=== PATIENT | female | born 1955 | race Caucasian/White ===

== ENCOUNTER → 2023-02-06 | Outpatient (REF) | payer MEDICAID, SELFPAY ==
[2023-02-06 08:36] LABS: Hematocrit 37.8 % (37-47); Hemoglobin 12.2 g/dL (12.0-15.0); Mean Corp Hgb Conc 32.3 g/dL (32-36); Mean Platelet Vol. 9.4 fl (6.2-12.0); Platelet Count 240 K/mm3 (150-450); RBC Distribution Width CV 14.2 % (11.6-14.6); RBC Distribution Width SD 46.5 fl (35.1-43.9); White Blood Count 6.7 K/mm3 (4.4-11.0)
[2023-02-06 09:06] LABS: ALB/GLOB Ratio 0.9 RATIO (0.9-2.4); AST(SGOT) 11 U/L (15-37); Alanine Aminotransfer ALT/SGPT 16 U/L (13-56); Albumin, Serum 3.3 g/dL (3.2-5.0); Alkaline Phosphatase 92 U/L (45-117); Anion Gap 5 (5-15); BUN 18 mg/dL (7-18); BUN/Creat Ratio 24.4 RATIO (10-20); Chloride 107 mmol/L (98-107); Cholesterol 140 mg/dL (200); Creatinine, Serum 0.74 mg/dL (0.55-1.02); EST Glomerular Filtration Rate 83 mL/min (>60); Est Glom Filt Rate - Afr Amer 100 mL/min (>60); Globulin 3.6 g/dL (2.2-4.2); Glucose 171 mg/dL (74-106); High Density Lipoprotein 40 mg/dL; Potassium 3.5 mmol/L (3.5-5.1); Protein, Total 6.9 g/dL (6.4-8.2); Sodium Level 138 mmol/L (136-145); Thyroid Stim Hormone (TSH) 4.26 uIU/mL (0.358-3.74); Triglycerides 162 mg/dL; Very Low Density Lipoprotein 32 mg/dL (5-40)
[2023-02-06 09:10] LABS: Hemoglobin A1c 6.9 % (3.8-5.6)
[2023-02-06 09:16] LABS: Vitamin B12 311 pg/mL (211-911)
== END | disposition home or self-care (01) ==
LOC: OLS.SW 06:00
PROVIDERS: Visit Provider Internal Medicine
DX: E11.22 Type 2 diabetes mellitus with diabetic chronic kidney disease (principal); N18.9 Chronic kidney disease, unspecified
CPT/HCPCS: 36415; 80053; 80061; 82607; 83036; 84443; 85027

== ENCOUNTER → 2023-04-23 | Outpatient (REF) | payer MEDICAID, SELFPAY ==
[2023-04-24 08:13] LABS: Mucous, Urine 0 SEEN /hpf (<or=2+); Red Blood Cells-Urine 0 SEEN /hpf (0-5)
[2023-04-24 08:58] LABS: Color, Urine Yellow (Yellow); Glucose, Dipstick Normal (Normal); Ketone-Dipstick Negative (Negative); Leukocyte Esterase-Dipstick 25 /ul (Negative); Nitrite-Dipstick Positive (Negative); Occult Blood-Urine Negative /ul (Negative); Protein-Dipstick Negative (Negative); Urine Bilirubin Dipstick Negative (Negative); Urine Clarity Cloudy (Clear); Urine Urobilinogen 1 mg/dl (Normal)
[2023-04-24 09:04] LABS: Bacteria 2+ /hpf (None Seen); Squamous Epithelial Cells - UA 0-5 SEEN /hpf (5-10); White Blood Cells 0-5 SEEN /hpf (0-5)
== END | disposition home or self-care (01) ==
LOC: OLS.SW 15:30
PROVIDERS: Visit Provider Internal Medicine
DX: R41.0 Disorientation, unspecified (principal); R45.1 Restlessness and agitation
CPT/HCPCS: 81001; 87077; 87086; 87088; 87186

== ENCOUNTER → 2023-04-23 | Outpatient (REF) | payer MEDICARE, MEDICAID, SELFPAY ==
[2023-04-23 08:12] LABS: Absolute Lymphocyte Count 1.84 X10^3/uL (0.83-4.51); Basophil# 0.05 X10^3/uL; Basophil% 0.8 % (0-1); Eosinophil# 0.19 X10^3/uL; Eosinophils% 2.9 % (0-5); Hemoglobin 12.9 g/dL (12.0-15.0); Lymphocyte # 1.84 X10^3/ul (0.83-4.51); Lymphocyte % 27.8 % (19-41); Mean Corp Hgb Conc 32.3 g/dL (32-36); Mean Corpuscular Hgb 28.9 pg (27.0-32.0); Mean Corpuscular Volume 89.7 fL (81-99); Mean Platelet Vol. 9.2 fl (6.2-12.0); Monocyte% 7.6 % (0-10); NRBC Flagged by Analyzer 0 % (0-5); Neutrophil # 4.01 X10^3/uL (2.7-7.7); Neutrophil % 60.6 % (47-70); Platelet Count 272 K/mm3 (150-450); RBC Distribution Width CV 13.3 % (11.6-14.6); RBC Distribution Width SD 43.5 fl (35.1-43.9); Red Blood Count 4.46 M/mm3 (4.2-5.4); White Blood Count 6.6 K/mm3 (4.4-11.0)
[2023-04-23 08:18] LABS: Anion Gap 6 (5-15); BUN 23 mg/dL (7-18); Calcium,Total 9.2 mg/dL (8.5-10.1); Chloride 106 mmol/L (98-107); Creatinine, Serum 0.66 mg/dL (0.55-1.02); EST Glomerular Filtration Rate 95 mL/min (>60); Est Glom Filt Rate - Afr Amer 115 mL/min (>60); Glucose 151 mg/dL (74-106); Potassium 3.6 mmol/L (3.5-5.1); Sodium Level 140 mmol/L (136-145)
== END | disposition home or self-care (01) ==
LOC: OLS.SW 05:00
PROVIDERS: Visit Provider Internal Medicine
DX: R45.1 Restlessness and agitation (principal); R41.0 Disorientation, unspecified
CPT/HCPCS: 36415; 80048; 85025

== ENCOUNTER → 2023-05-23 | Outpatient (REF) | payer MEDICARE, MEDICAID, SELFPAY ==
[2023-05-23 21:25] LABS: Bacteria 0 SEEN /hpf (None Seen); Mucous, Urine 0 SEEN /hpf (<or=2+); Red Blood Cells-Urine 0 SEEN /hpf (0-5)
[2023-05-23 21:27] LABS: Absolute Lymphocyte Count 1.68 X10^3/uL (0.83-4.51); Absolute Neutrophil Count 4.8 X10^3/uL (2.0-7.7); Basophil# 0.05 X10^3/uL; Basophil% 0.7 % (0-1); Eosinophil# 0.17 X10^3/uL; Eosinophils% 2.3 % (0-5); Hematocrit 40.4 % (37-47); Hemoglobin 13.9 g/dL (12.0-15.0); Lymphocyte # 1.68 X10^3/ul (0.83-4.51); Mean Corp Hgb Conc 34.4 g/dL (32-36); Mean Corpuscular Hgb 30.2 pg (27.0-32.0); Mean Corpuscular Volume 87.8 fL (81-99); Mean Platelet Vol. 9.2 fl (6.2-12.0); Monocyte# 0.61 X10^3/uL; Monocyte% 8.3 % (0-10); NRBC Flagged by Analyzer 0 % (0-5); Neutrophil # 4.78 X10^3/uL (2.7-7.7); Neutrophil % 65.3 % (47-70); Platelet Count 268 K/mm3 (150-450); RBC Distribution Width CV 13.7 % (11.6-14.6); RBC Distribution Width SD 43.8 fl (35.1-43.9); White Blood Count 7.3 K/mm3 (4.4-11.0)
[2023-05-23 21:49] LABS: Color, Urine Yellow (Yellow); Glucose, Dipstick Normal (Normal); Ketone-Dipstick 5 mg/dl (Negative); Leukocyte Esterase-Dipstick 500 /ul (Negative); Nitrite-Dipstick Negative (Negative); Occult Blood-Urine 250 /ul (Negative); Protein-Dipstick 100 mg/dl (Negative); Urine Clarity Cloudy (Clear); Urine Urobilinogen 1 mg/dl (Normal)
[2023-05-23 21:51] LABS: Anion Gap 10 (5-15); BUN 24 mg/dL (7-18); BUN/Creat Ratio 23.8 RATIO (10-20); Calcium,Total 9.4 mg/dL (8.5-10.1); Chloride 105 mmol/L (98-107); Creatinine, Serum 1.01 mg/dL (0.55-1.02); EST Glomerular Filtration Rate 58 mL/min (>60); Est Glom Filt Rate - Afr Amer 70 mL/min (>60); Glucose 205 mg/dL (74-106); Potassium 3.9 mmol/L (3.5-5.1); Sodium Level 140 mmol/L (136-145)
[2023-05-23 22:16] LABS: Urine Bilirubin Dipstick 1 mg/dL (Negative)
[2023-05-23 22:24] LABS: Squamous Epithelial Cells - UA 0-5 SEEN /hpf (5-10); White Blood Cells >100 SEEN /hpf (0-5)
== END | disposition home or self-care (01) ==
LOC: OLS.SW 20:22
PROVIDERS: Visit Provider Internal Medicine
DX: F41.9 Anxiety disorder, unspecified (principal); R45.1 Restlessness and agitation; R41.0 Disorientation, unspecified
CPT/HCPCS: 80048; 81001; 85025; 87077; 87086; 87088; 87186

== ENCOUNTER → 2023-08-06 | Outpatient (REF) | payer MEDICARE, MEDICAID, SELFPAY ==
[2023-08-06 10:00] LABS: Hemoglobin A1c 6.7 % (3.8-5.6)
== END ==
LOC: OLS.SW 04:00
PROVIDERS: Visit Provider Internal Medicine
DX: E11.9 Type 2 diabetes mellitus without complications (principal)
CPT/HCPCS: 36415; 83036

== ENCOUNTER → 2023-09-10 | Outpatient (REF) | payer MEDICARE, MEDICAID, SELFPAY ==
[2023-09-10 08:22] LABS: Hematocrit 40.9 % (37-47); Hemoglobin 13.5 g/dL (12.0-15.0); Mean Corpuscular Hgb 29.3 pg (27.0-32.0); Mean Corpuscular Volume 88.9 fL (81-99); Mean Platelet Vol. 9.4 fl (6.2-12.0); Platelet Count 284 K/mm3 (150-450); White Blood Count 7.3 K/mm3 (4.4-11.0)
[2023-09-10 08:39] LABS: Anion Gap 6 (5-15); BUN 17 mg/dL (7-18); Calcium,Total 9.3 mg/dL (8.5-10.1); Chloride 106 mmol/L (98-107); Creatinine, Serum 0.74 mg/dL (0.55-1.02); EST Glomerular Filtration Rate 83 mL/min (>60); Est Glom Filt Rate - Afr Amer 100 mL/min (>60); Glucose 125 mg/dL (74-106); Potassium 3.6 mmol/L (3.5-5.1); Sodium Level 139 mmol/L (136-145)
== END ==
LOC: OLS.SW 04:00
PROVIDERS: Referring Provider Internal Medicine; Visit Provider Internal Medicine
DX: E78.5 Hyperlipidemia, unspecified (principal); I25.10 Atherosclerotic heart disease of native coronary artery without angina pectoris
CPT/HCPCS: 36415; 80048; 85027

== ENCOUNTER → 2023-11-26 | Outpatient (REF) | payer MEDICARE, MEDICAID, SELFPAY ==
[2023-11-26 08:37] LABS: Absolute Lymphocyte Count 1.95 X10^3/uL (0.83-4.51); Basophil# 0.06 X10^3/uL; Basophil% 0.5 % (0-1); Eosinophil# 1.91 X10^3/uL; Eosinophils% 16.1 % (0-5); Hematocrit 37.6 % (37-47); Hemoglobin 12.3 g/dL (12.0-15.0); Lymphocyte # 1.95 X10^3/ul (0.83-4.51); Lymphocyte % 16.4 % (19-41); Mean Corp Hgb Conc 32.7 g/dL (32-36); Mean Corpuscular Hgb 29.4 pg (27.0-32.0); Mean Platelet Vol. 9.6 fl (6.2-12.0); Monocyte# 0.92 X10^3/uL; Monocyte% 7.8 % (0-10); NRBC Flagged by Analyzer 0 % (0-5); Neutrophil # 6.97 X10^3/uL (2.7-7.7); Neutrophil % 58.7 % (47-70); Platelet Count 268 K/mm3 (150-450); RBC Distribution Width CV 13.6 % (11.6-14.6); RBC Distribution Width SD 44.7 fl (35.1-43.9); Red Blood Count 4.18 M/mm3 (4.2-5.4); White Blood Count 11.9 K/mm3 (4.4-11.0)
[2023-11-26 11:07] LABS: Anion Gap 9 (5-15); BUN 26 mg/dL (7-18); Calcium,Total 9.3 mg/dL (8.5-10.1); Chloride 107 mmol/L (98-107); Creatinine, Serum 0.87 mg/dL (0.55-1.02); EST Glomerular Filtration Rate 69 mL/min (>60); Est Glom Filt Rate - Afr Amer 83 mL/min (>60); Glucose 145 mg/dL (74-106); Potassium 3.4 mmol/L (3.5-5.1); Sodium Level 140 mmol/L (136-145)
== END ==
LOC: OLS.SW 05:00
PROVIDERS: Visit Provider Internal Medicine
DX: E78.5 Hyperlipidemia, unspecified (principal); R79.9 Abnormal finding of blood chemistry, unspecified
CPT/HCPCS: 36415; 80048; 85025

== ENCOUNTER → 2023-11-28 | Outpatient (REF) | payer MEDICARE, MEDICAID, SELFPAY ==
[2023-11-28 10:16] LABS: Mucous, Urine 0 SEEN /hpf (<or=2+); Red Blood Cells-Urine 0 SEEN /hpf (0-5); Squamous Epithelial Cells - UA 0 SEEN /hpf (5-10)
[2023-11-28 10:20] LABS: Color, Urine Yellow (Yellow); Glucose, Dipstick Normal (Normal); Ketone-Dipstick 5 mg/dl (Negative); Leukocyte Esterase-Dipstick 500 /ul (Negative); Nitrite-Dipstick Negative (Negative); Occult Blood-Urine 10 /ul (Negative); Protein-Dipstick 30 mg/dl (Negative); Specific Gravity, Urine 1.015 (1.002-1.030); Urine Clarity Cloudy (Clear); Urine Urobilinogen 1 mg/dl (Normal)
[2023-11-28 10:26] LABS: Urine Bilirubin Dipstick 1 mg/dL (Negative)
[2023-11-28 11:11] LABS: Amorphous Sediment 3+; Bacteria 1+ /hpf (None Seen); White Blood Cells >100 SEEN /hpf (0-5)
== END ==
LOC: OLS.SW 05:00
PROVIDERS: Visit Provider Internal Medicine
DX: D72.829 Elevated white blood cell count, unspecified (principal); Z79.899 Other long term (current) drug therapy
CPT/HCPCS: 81001; 87077; 87086; 87088; 87186

== ENCOUNTER → 2023-12-05 | Outpatient (REF) | payer MEDICARE, MEDICAID, SELFPAY ==
[2023-12-05 07:39] LABS: Absolute Lymphocyte Count 1.52 X10^3/uL (0.83-4.51); Basophil# 0.05 X10^3/uL; Basophil% 0.8 % (0-1); Eosinophil# 0.42 X10^3/uL; Eosinophils% 6.5 % (0-5); Hematocrit 38.3 % (37-47); Hemoglobin 12.3 g/dL (12.0-15.0); Lymphocyte # 1.52 X10^3/ul (0.83-4.51); Lymphocyte % 23.6 % (19-41); Mean Corp Hgb Conc 32.1 g/dL (32-36); Mean Corpuscular Hgb 29.1 pg (27.0-32.0); Mean Corpuscular Volume 90.8 fL (81-99); Mean Platelet Vol. 9.4 fl (6.2-12.0); Monocyte# 0.49 X10^3/uL; Monocyte% 7.6 % (0-10); NRBC Flagged by Analyzer 0 % (0-5); Neutrophil # 3.96 X10^3/uL (2.7-7.7); Neutrophil % 61.3 % (47-70); Platelet Count 265 K/mm3 (150-450); RBC Distribution Width CV 13.6 % (11.6-14.6); RBC Distribution Width SD 44.6 fl (35.1-43.9); Red Blood Count 4.22 M/mm3 (4.2-5.4); White Blood Count 6.5 K/mm3 (4.4-11.0)
== END ==
LOC: OLS.SW 05:00
PROVIDERS: Visit Provider Internal Medicine
DX: E11.22 Type 2 diabetes mellitus with diabetic chronic kidney disease (principal); E78.5 Hyperlipidemia, unspecified; I12.9 Hypertensive chronic kidney disease with stage 1 through stage 4 chronic kidney disease, or unspecified chronic kidney disease; N18.31 Chronic kidney disease, stage 3a
CPT/HCPCS: 36415; 85025

== ENCOUNTER → 2024-02-27 | Outpatient (REF) | payer MEDICARE, MEDICAID, SELFPAY ==
[2024-02-27 09:02] LABS: Absolute Lymphocyte Count 1.66 X10^3/uL (0.83-4.51); Absolute Neutrophil Count 4.5 X10^3/uL (2.0-7.7); Basophil# 0.04 X10^3/uL; Basophil% 0.6 % (0-1); Eosinophil# 0.25 X10^3/uL; Eosinophils% 3.5 % (0-5); Hematocrit 39.2 % (37-47); Lymphocyte # 1.66 X10^3/ul (0.83-4.51); Lymphocyte % 23.5 % (19-41); Mean Corp Hgb Conc 33.2 g/dL (32-36); Mean Corpuscular Hgb 29.9 pg (27.0-32.0); Mean Corpuscular Volume 90.1 fL (81-99); Mean Platelet Vol. 9.5 fl (6.2-12.0); Monocyte# 0.58 X10^3/uL; Monocyte% 8.2 % (0-10); NRBC Flagged by Analyzer 0 % (0-5); Neutrophil % 63.8 % (47-70); Platelet Count 283 K/mm3 (150-450); RBC Distribution Width CV 13.1 % (11.6-14.6); Red Blood Count 4.35 M/mm3 (4.2-5.4); White Blood Count 7.1 K/mm3 (4.4-11.0)
[2024-02-27 09:19] LABS: Anion Gap 5 (5-15); BUN 27 mg/dL (7-18); BUN/Creat Ratio 33.5 RATIO (10-20); Calcium,Total 9.8 mg/dL (8.5-10.1); Chloride 107 mmol/L (98-107); Cholesterol 173 mg/dL (200); Creatinine, Serum 0.81 mg/dL (0.55-1.02); EST Glomerular Filtration Rate 75 mL/min (>60); Est Glom Filt Rate - Afr Amer 91 mL/min (>60); Glucose 149 mg/dL (74-106); High Density Lipoprotein 39 mg/dL; Potassium 4.1 mmol/L (3.5-5.1); Sodium Level 141 mmol/L (136-145); Triglycerides 200 mg/dL; Very Low Density Lipoprotein 40 mg/dL (5-40)
[2024-02-27 09:48] LABS: Hemoglobin A1c 7.3 % (3.8-5.6)
== END ==
LOC: OLS.SW 05:00
PROVIDERS: Visit Provider Internal Medicine
DX: I25.10 Atherosclerotic heart disease of native coronary artery without angina pectoris (principal); E11.22 Type 2 diabetes mellitus with diabetic chronic kidney disease; N18.9 Chronic kidney disease, unspecified
CPT/HCPCS: 36415; 80048; 80061; 83036; 85025

== ENCOUNTER 2024-03-24 20:53 | Emergency (ER) | payer MEDICARE, MEDICAID, SELFPAY ==
[2024-03-24 20:54] VITALS: BP 138/71; PULSE 60; RESP 17; TEMP 36.3; O2SAT 96; BMI 28.9
[2024-03-24 21:06] VITALS: BP 137/71; PULSE 60; RESP 16; TEMP 36.3; O2SAT 97
--- NOTE | 2024-03-24 21:12 | CT_ITS ---
EXAM: CT HEAD WITHOUT INTRAVENOUS CONTRAST CLINICAL INDICATION: Change in Mental Status TECHNIQUE: Multiple axial images were obtained of the head without intravenous contrast. CTDIvol = ( 44.99 ) mGy, DLP = ( 829.85 ) mGycm This CT exam was performed using one or more of the following dose reduction techniques: automated exposure control, adjustment of the mA and/or kV according to patient size, and/or use of iterative reconstruction technique. COMPARISON: No relevant prior studies available. FINDINGS: BRAIN AND EXTRA-AXIAL SPACES: Periventricular small vessel ischemic change. No midline shift or hydrocephalus. Diffuse parenchymal atrophy. Small old lacunar infarct at the junction of the posterior aspect of the left basal ganglia and the left thalamus. Old focal infarct involving the subcortical white matter of the right frontal region anterolaterally. Diffuse cerebellar atrophy. Basal cisterns are patent. No acute intracranial hemorrhage, mass effect or edema. No evidence of acute cortical stroke. BONES/JOINTS: Unremarkable. No discrete lytic or blastic abnormalities. VASCULATURE: Atherosclerotic calcifications of the carotid siphons and vertebrobasilar arteries. SINUSES: Unremarkable as visualized. Clear. MASTOID AIR CELLS: Visualized sinuses and mastoid air cells are clear. ORBITS: Visualized globes, extraocular muscles, optic nerves and retrobulbar fat appear unremarkable. CT/Brain/Head without Contrast IMPRESSION: 1. No evidence of acute intracranial pathology. 2. Diffuse involutional changes and chronic ischemic small vessel white matter disease. Electronically Signed: Ricci Wilson MD at 0:07 EDT ,
--- NOTE | 2024-03-24 21:26 | EX.ED.VIS.PS ---
HPI HPI - Psych History of Present Illness Chief Complaint: Mental Health Informant: patient, EMS and SNF Narrative Narrative: Patient sent in from [facility] secondary to altered mental status. She has a history of dementia and reportedly has been yelling and violent with nurses as well as EMS today. EMS did give her 5 mg of IM Haldol during transport. Patient does not know where she is or why she is here. On review of records patient does appear to have history of dementia along with prior CVA and right hemiplegia. She has a history of chronic kidney disease with prior NC as well. [facility] Medical History (Updated 03/25/24 @ 00:[address] Kay Nichole MD) Anxiety and depression Breast cancer Chronic kidney disease CVA (cerebral vascular accident) Dementia Diabetes Hemiparesis High cholesterol Myocardial infarction Allergy/AdvReac Type Severity Reaction Status Date / Time FELICITY Inhibitors Allergy Unknown PT UNABLE Verified 03/24/24 21:51 TO RESPOND-NEEDS F/U eggplant Allergy Unknown PT UNABLE Verified 03/24/24 21:51 TO RESPOND-NEEDS F/U Penicillins Allergy Unknown PT UNABLE Verified 03/24/24 21:51 TO RESPOND-NEEDS F/U Surgical History History of mastectomy Social History Smoking Status: Never smoker ROS ROS ED Review of Systems ROS Unobtainable: due to mental status EXAM Physical Exam Const Vital Signs: 03/24/24 20:54 03/24/24 21:06 03/24/24 22:00 Temperature 97.3 F L 97.4 F L Temperature Source Temporal Temporal Pulse Rate 60 60 84 Respiratory Rate 17 16 16 Blood Pressure 138/71 H 137/71 H 132/82 H Blood Pressure Mean 93 93 98 Pulse Ox 96 97 99 Oxygen Delivery Method Room Air Room Air Room Air 03/24/24 23:00 03/25/24 00:00 Temperature Temperature Source Pulse Rate 76 69 Respiratory Rate 16 16 Blood Pressure 128/74 H 131/74 H Blood Pressure Mean 92 93 Pulse Ox 95 98 Oxygen Delivery Method Room Air Room Air Positive well nourished and well developed General Appearance ED: well developed HEENT Reports moist mucous membranes Eyes EOMs intact bilaterally Resp normal respiratory effort and clear to auscultation bilaterally Cardio Rate: regular rate Rhythm: regular rhythm GI non-tender Palpation: soft Extremity normal to inspection Neuro Neuro Narrative: Patient alert and looking around the room. She does not know where she is or why she is here. She has chronic right hemiparesis. Psych Psych Narrative: Patient with stuttered speech and hesitant to speak. Looks about the room. MDM MDM MDM Narrative Medical decision making narrative: IV line established. Labwork obtained to evaluate for leukocytosis, anemia, and electrolyte derangement. Urinalysis obtained to evaluate for infection/hematuria. CT scan of the head obtained given her altered mental status with baseline dementia. Lab Data Attestation: I reviewed the patient's lab results. Labs: Laboratory Results - last 24 hr 03/24/24 03/24/24 22:13 22:29 WBC 6.8 RBC 4.70 Hgb 13.5 Hct 42.2 MCV 89.8 MCH 28.7 MCHC 32.0 RDW Std Deviation 43.0 RDW Coeff of Jose 13.2 Plt Count 264 MPV 8.9 Immature Gran % (Auto) 0.300 Neut % (Auto) 63.5 Lymph % (Auto) 23.9 [place] % (Auto) 8.8 Eos % (Auto) 2.8 Baso % (Auto) 0.7 Absolute Neuts (auto) 4.3 Absolute Lymphs (auto) 1.62 Nucleated RBC % 0 Sodium 138 Potassium 4.0 Chloride 107 Carbon Dioxide 21.0 Anion Gap 10 BUN 26 H Creatinine 0.90 Estim Creat Clear Calc 61.24 Est GFR (MDRD) Af Amer 80 Est GFR (MDRD) Non-Af 66 BUN/Creatinine Ratio 29.0 H Glucose 127 H Calcium 9.6 Total Bilirubin 0.40 AST 18 ALT 19 Alkaline Phosphatase 69 Total Protein 7.4 Albumin 3.6 Globulin 3.8 Albumin/Globulin Ratio 0.9 Urine Color Yellow Urine Clarity Sl. Cloudy Urine pH 6.0 Ur Specific [place] 1.020 Urine Protein 15 H Urine Glucose (UA) Normal Urine Ketones Negative Urine Occult Blood 50 H Urine Nitrite Positive H Urine Bilirubin 1 H Urine Urobilinogen 1 H Ur Leukocyte Esterase 100 H Urine RBC 0-5 SEEN Urine WBC 5-10 SEEN Ur Squamous Epith Cells 0 SEEN Urine Bacteria 3+ Urine Mucus RARE Urine Opiates Screen NEGATIVE Urine Methadone Screen NEGATIVE Ur Barbiturates Screen NEGATIVE Ur Phencyclidine Scrn NEGATIVE Ur Amphetamines Screen NEGATIVE MDMA (Ecstasy) Screen NEGATIVE U Benzodiazepines Scrn NEGATIVE Urine Cocaine Screen NEGATIVE U Cannabinoids Screen NEGATIVE Ur Drug Screen Comment Ethyl Alcohol 4.0 Radiography Diagnostic Testing: Clinical Impression(s) from Imaging Studies Brain CT 03/24/24 21:12 IMPRESSION: 1. No evidence of acute intracranial pathology. 2. Diffuse involutional changes and chronic ischemic small vessel white matter disease. Electronically Signed: Ricci Wilson MD at 0:07 EDT , Treatment and Re-Evaluation Narrative: CBC was normal white count 6.8 with a hemoglobin of 13.5. Differential unremarkable. Chemistry studies are unremarkable with normal renal function. Glucose is 127. LFTs are normal. Urinalysis reveals positive nitrites with 3+ bacteria and 5-10 white cells. Urine tox screen is negative. EtOH is negative. CT scan of the head reveals no acute intracranial pathology. Diffuse involutional changes are noted with chronic small vessel ischemic white matter change. Patient had received Haldol prior to arrival in the emergency room. I have not had to remedicate her here. She is given a dose of IV Rocephin for her UTI and urine culture will be sent. We will have crisis evaluate the patient given her dementia with behavioral disturbance. Patient was signed out to oncoming physician for further observation while awaiting crisis eval. Discharge Plan Triage Chief Complaint: Mental Health ED Provider: Kay Nichole Dx/Rx/DC Orders Clinical Impression: UTI (urinary tract infection), Dementia with behavioral disturbance Primary Care Provider: Olinda Resendez Referrals: Olinda Resendez MD [Primary Care Provider] -
[2024-03-24 22:00] VITALS: BP 132/82; PULSE 84; RESP 16; O2SAT 99
[2024-03-24 22:25] LABS: Absolute Lymphocyte Count 1.62 X10^3/uL (0.83-4.51); Absolute Neutrophil Count 4.3 X10^3/uL (2.0-7.7); Basophil# 0.05 X10^3/uL; Basophil% 0.7 % (0-1); Eosinophil# 0.19 X10^3/uL; Eosinophils% 2.8 % (0-5); Hematocrit 42.2 % (37-47); Hemoglobin 13.5 g/dL (12.0-15.0); Lymphocyte # 1.62 X10^3/ul (0.83-4.51); Lymphocyte % 23.9 % (19-41); Mean Corpuscular Hgb 28.7 pg (27.0-32.0); Mean Corpuscular Volume 89.8 fL (81-99); Mean Platelet Vol. 8.9 fl (6.2-12.0); Monocyte% 8.8 % (0-10); NRBC Flagged by Analyzer 0 % (0-5); Neutrophil % 63.5 % (47-70); Platelet Count 264 K/mm3 (150-450); RBC Distribution Width CV 13.2 % (11.6-14.6); White Blood Count 6.8 K/mm3 (4.4-11.0)
[2024-03-24 22:34] LABS: Squamous Epithelial Cells - UA 0 SEEN /hpf (5-10)
[2024-03-24 22:37] LABS: Color, Urine Yellow (Yellow); Glucose, Dipstick Normal (Normal); Ketone-Dipstick Negative (Negative); Leukocyte Esterase-Dipstick 100 /ul (Negative); Nitrite-Dipstick Positive (Negative); Occult Blood-Urine 50 /ul (Negative); Protein-Dipstick 15 mg/dl (Negative); Urine Clarity Sl. Cloudy (Clear); Urine Urobilinogen 1 mg/dl (Normal)
[2024-03-24 22:41] LABS: Urine Bilirubin Dipstick 1 mg/dL (Negative)
[2024-03-24 22:45] LABS: Bacteria 3+ /hpf (None Seen); White Blood Cells 5-10 SEEN /hpf (0-5)
[2024-03-24 22:45] LABS: ALB/GLOB Ratio 0.9 RATIO (0.9-2.4); AST(SGOT) 18 U/L (15-37); Alanine Aminotransfer ALT/SGPT 19 U/L (13-56); Albumin, Serum 3.6 g/dL (3.2-5.0); Alkaline Phosphatase 69 U/L (45-117); Anion Gap 10 (5-15); BUN 26 mg/dL (7-18); Calcium,Total 9.6 mg/dL (8.5-10.1); Chloride 107 mmol/L (98-107); EST Glomerular Filtration Rate 66 mL/min (>60); Est Glom Filt Rate - Afr Amer 80 mL/min (>60); Estimated Creatinine Clearance 61.24 ml/min; Globulin 3.8 g/dL (2.2-4.2); Glucose 127 mg/dL (74-106); Protein, Total 7.4 g/dL (6.4-8.2); Sodium Level 138 mmol/L (136-145)
[2024-03-24 22:46] LABS: Mucous, Urine RARE /hpf (<or=2+); Red Blood Cells-Urine 0-5 SEEN /hpf (0-5)
[2024-03-24 23:00] VITALS: BP 128/74; PULSE 76; RESP 16; O2SAT 95
[2024-03-24 23:23] LABS: Amphetamine Urine VISTA NEGATIVE (<1000 ng/mL); Barbiturate Urine VISTA NEGATIVE (< 200 ng/mL); Benzodiazepine Urine VISTA NEGATIVE (< 200 ng/mL); Cocaine Urine VISTA NEGATIVE (< 300 ng/mL); Ecstacy Urine VISTA NEGATIVE (< 500 ng/mL); Methadone Urine VISTA NEGATIVE (< 300 ng/mL); PCP Urine VISTA NEGATIVE (< 25 ng/mL); THC Urine VISTA NEGATIVE (< 50 ng/mL); Vista UDS pH Range 5
[2024-03-24] MEDS: Ceftriaxone 1 GM/50 ML BAG IV (23:23)
[2024-03-25] VITALS: BP 131/74; PULSE 69; RESP 16; O2SAT 98
[2024-03-25 01:00] VITALS: BP 127/84; PULSE 76; RESP 16; O2SAT 98
[2024-03-25 04:00] VITALS: PULSE 70; RESP 16; O2SAT 97
[2024-03-25 05:30] VITALS: BP 158/81; PULSE 78; RESP 20; TEMP 36.7; O2SAT 98
[2024-03-25 05:50] VITALS: BP 158/81; PULSE 78; RESP 16; TEMP 36.7; O2SAT 98
== END 2024-03-25 07:07 | disposition home or self-care (01) ==
PROVIDERS: Emergency Provider Emergency Medicine; PCP Internal Medicine; Visit Provider Emergency Medicine
DX: N39.0 Urinary tract infection, site not specified (principal); I69.351 Hemiplegia and hemiparesis following cerebral infarction affecting right dominant side; F03.918 Unspecified dementia, unspecified severity, with other behavioral disturbance; E11.22 Type 2 diabetes mellitus with diabetic chronic kidney disease; N18.9 Chronic kidney disease, unspecified; E78.00 Pure hypercholesterolemia, unspecified; R45.6 Violent behavior; I25.2 Old myocardial infarction
CPT/HCPCS: 70450; 80053; 80307; 80320; 81001; 85025; 87077; 87086; 87088; 87186; 96365; 96366; 99282; J7050; A4216; G0480

== ENCOUNTER → 2024-03-27 | Outpatient (REF) | payer MEDICARE, MEDICAID, SELFPAY ==
[2024-03-27 08:31] LABS: Hematocrit 38.2 % (37-47); Hemoglobin 12.4 g/dL (12.0-15.0); Mean Corp Hgb Conc 32.5 g/dL (32-36); Mean Corpuscular Hgb 28.6 pg (27.0-32.0); Mean Platelet Vol. 9.3 fl (6.2-12.0); Platelet Count 261 K/mm3 (150-450); RBC Distribution Width CV 13.2 % (11.6-14.6); RBC Distribution Width SD 42.6 fl (35.1-43.9); Red Blood Count 4.34 M/mm3 (4.2-5.4); White Blood Count 6.8 K/mm3 (4.4-11.0)
[2024-03-27 08:46] LABS: Anion Gap 5 (5-15); BUN 25 mg/dL (7-18); BUN/Creat Ratio 31.4 RATIO (10-20); Calcium,Total 9.3 mg/dL (8.5-10.1); Chloride 107 mmol/L (98-107); EST Glomerular Filtration Rate 76 mL/min (>60); Est Glom Filt Rate - Afr Amer 92 mL/min (>60); Glucose 147 mg/dL (74-106); Potassium 3.5 mmol/L (3.5-5.1); Sodium Level 139 mmol/L (136-145)
== END ==
LOC: OLS.SW 05:00
PROVIDERS: PCP Internal Medicine; Visit Provider Internal Medicine
DX: E11.22 Type 2 diabetes mellitus with diabetic chronic kidney disease (principal); N18.9 Chronic kidney disease, unspecified; I25.10 Atherosclerotic heart disease of native coronary artery without angina pectoris
CPT/HCPCS: 36415; 80048; 85027

== ENCOUNTER → 2024-06-03 | Outpatient (REF) | payer MEDICARE, MEDICAID, SELFPAY ==
[2024-06-03 09:54] LABS: Hematocrit 37.7 % (37-47); Hemoglobin 12.2 g/dL (12.0-15.0); Mean Corp Hgb Conc 32.4 g/dL (32-36); Mean Corpuscular Hgb 28.1 pg (27.0-32.0); Mean Corpuscular Volume 86.9 fL (81-99); Mean Platelet Vol. 9.6 fl (6.2-12.0); Platelet Count 274 K/mm3 (150-450); RBC Distribution Width CV 13.9 % (11.6-14.6); RBC Distribution Width SD 44.1 fl (35.1-43.9); Red Blood Count 4.34 M/mm3 (4.2-5.4); White Blood Count 5.9 K/mm3 (4.4-11.0)
[2024-06-03 10:21] LABS: AST(SGOT) 13 U/L (15-37); Alanine Aminotransfer ALT/SGPT 16 U/L (13-56); Albumin, Serum 3.2 g/dL (3.2-5.0); Alkaline Phosphatase 71 U/L (45-117); Bilirubin, Direct 0.14 mg/dL (0.00-0.30); Globulin 3.7 g/dL (2.2-4.2); Protein, Total 6.9 g/dL (6.4-8.2)
[2024-06-03 11:37] LABS: Valproic Acid (Depakene) Level 21 ug/mL (50-100)
== END ==
LOC: OLS.SW 05:00
PROVIDERS: PCP Internal Medicine; Referring Provider Internal Medicine; Visit Provider Internal Medicine
DX: Z51.81 Encounter for therapeutic drug level monitoring (principal); Z79.899 Other long term (current) drug therapy
CPT/HCPCS: 36415; 80076; 80164; 85027

== ENCOUNTER → 2024-06-23 | Outpatient (REF) | payer MEDICARE, MEDICAID, SELFPAY ==
[2024-06-23 09:11] LABS: Absolute Lymphocyte Count 1.36 X10^3/uL (0.83-4.51); Absolute Neutrophil Count 2.8 X10^3/uL (2.0-7.7); Basophil# 0.04 X10^3/uL; Basophil% 0.8 % (0-1); Eosinophil# 0.14 X10^3/uL; Eosinophils% 2.8 % (0-5); Hematocrit 36.5 % (37-47); Hemoglobin 11.6 g/dL (12.0-15.0); Lymphocyte # 1.36 X10^3/ul (0.83-4.51); Lymphocyte % 27.6 % (19-41); Mean Corp Hgb Conc 31.8 g/dL (32-36); Mean Corpuscular Hgb 28.4 pg (27.0-32.0); Mean Corpuscular Volume 89.5 fL (81-99); Mean Platelet Vol. 9.6 fl (6.2-12.0); Monocyte# 0.54 X10^3/uL; NRBC Flagged by Analyzer 0 % (0-5); Neutrophil # 2.83 X10^3/uL (2.7-7.7); Neutrophil % 57.4 % (47-70); Platelet Count 262 K/mm3 (150-450); RBC Distribution Width CV 13.8 % (11.6-14.6); RBC Distribution Width SD 45.1 fl (35.1-43.9); Red Blood Count 4.08 M/mm3 (4.2-5.4); White Blood Count 4.9 K/mm3 (4.4-11.0)
[2024-06-23 09:56] LABS: Anion Gap 8 (5-15); BUN 34 mg/dL (7-18); BUN/Creat Ratio 40.5 RATIO (10-20); Calcium,Total 9.5 mg/dL (8.5-10.1); Chloride 108 mmol/L (98-107); Creatinine, Serum 0.84 mg/dL (0.55-1.02); EST Glomerular Filtration Rate 71 mL/min (>60); Est Glom Filt Rate - Afr Amer 86 mL/min (>60); Glucose 97 mg/dL (74-106); Potassium 3.1 mmol/L (3.5-5.1); Sodium Level 142 mmol/L (136-145)
== END ==
LOC: OLS.SW 05:40
PROVIDERS: PCP Internal Medicine; Visit Provider Internal Medicine
DX: I12.9 Hypertensive chronic kidney disease with stage 1 through stage 4 chronic kidney disease, or unspecified chronic kidney disease (principal); E11.22 Type 2 diabetes mellitus with diabetic chronic kidney disease; I25.10 Atherosclerotic heart disease of native coronary artery without angina pectoris; N18.9 Chronic kidney disease, unspecified
CPT/HCPCS: 36415; 80048; 85025

== ENCOUNTER → 2024-07-28 | Outpatient (REF) | payer MEDICARE, MEDICAID, SELFPAY ==
[2024-07-28 09:09] LABS: Absolute Lymphocyte Count 1.54 X10^3/uL (0.83-4.51); Absolute Neutrophil Count 5.7 X10^3/uL (2.0-7.7); Basophil# 0.03 X10^3/uL; Basophil% 0.4 % (0-1); Eosinophil# 0.19 X10^3/uL; Eosinophils% 2.4 % (0-5); Hematocrit 38.5 % (37-47); Lymphocyte # 1.54 X10^3/ul (0.83-4.51); Lymphocyte % 19.1 % (19-41); Mean Corp Hgb Conc 31.2 g/dL (32-36); Mean Corpuscular Hgb 28.2 pg (27.0-32.0); Mean Corpuscular Volume 90.6 fL (81-99); Mean Platelet Vol. 9.7 fl (6.2-12.0); Monocyte% 7.4 % (0-10); NRBC Flagged by Analyzer 0 % (0-5); Neutrophil # 5.68 X10^3/uL (2.7-7.7); Neutrophil % 70.3 % (47-70); Platelet Count 301 K/mm3 (150-450); RBC Distribution Width SD 46.6 fl (35.1-43.9); Red Blood Count 4.25 M/mm3 (4.2-5.4); White Blood Count 8.1 K/mm3 (4.4-11.0)
[2024-07-28 09:22] LABS: Anion Gap 10 (5-15); BUN 32 mg/dL (7-18); BUN/Creat Ratio 34.1 RATIO (10-20); Calcium,Total 10.2 mg/dL (8.5-10.1); Chloride 110 mmol/L (98-107); Creatinine, Serum 0.94 mg/dL (0.55-1.02); EST Glomerular Filtration Rate 63 mL/min (>60); Est Glom Filt Rate - Afr Amer 76 mL/min (>60); Glucose 104 mg/dL (74-106); Potassium 4.1 mmol/L (3.5-5.1); Sodium Level 143 mmol/L (136-145)
== END ==
LOC: OLS.SW 05:00
PROVIDERS: PCP Internal Medicine; Visit Provider Internal Medicine
DX: E11.9 Type 2 diabetes mellitus without complications (principal); I67.9 Cerebrovascular disease, unspecified; I25.42 Coronary artery dissection
CPT/HCPCS: 36415; 80048; 85025

== ENCOUNTER → 2024-08-06 | Outpatient (REF) | payer MEDICARE, MEDICAID, SELFPAY ==
[2024-08-06 09:10] LABS: Anion Gap 5 (5-15); BUN 23 mg/dL (7-18); BUN/Creat Ratio 25.1 RATIO (10-20); Calcium,Total 9.9 mg/dL (8.5-10.1); Chloride 110 mmol/L (98-107); Creatinine, Serum 0.92 mg/dL (0.55-1.02); EST Glomerular Filtration Rate 64 mL/min (>60); Est Glom Filt Rate - Afr Amer 78 mL/min (>60); Glucose 152 mg/dL (74-106); Potassium 3.5 mmol/L (3.5-5.1); Sodium Level 144 mmol/L (136-145)
== END ==
LOC: OLS.SW 06:06
PROVIDERS: PCP Internal Medicine; Visit Provider Internal Medicine
DX: E83.52 Hypercalcemia (principal)
CPT/HCPCS: 36415; 80048

== ENCOUNTER 2024-08-07 20:00 | Inpatient (IN) | payer MEDICARE, MEDICAID, SELFPAY ==
[2024-08-07] VITALS (8 sets, daily range): BP systolic 135–165; BP diastolic 77–86; PULSE 65–76; RESP 12–16; TEMP 36.6–36.8; O2SAT 98; BMI 24.5; BMI 26.4
--- NOTE | 2024-08-07 20:04 | CT_ITS ---
INDICATION: Neuro deficit, acute, stroke suspected EXAMINATION: CT BRAIN WITHOUT CONTRAST, CTA HEAD, AND CTA NECK TECHNIQUE: Noncontrast axial images were obtained of the brain. Subsequently, routine carotid CT angiogram protocol was performed without and with IV contrast. In addition, images were obtained of the [place] NASCET criteria using the distal ICAs for comparison were used for evaluation of stenoses. 3D reconstructions were reviewed. The protocol utilizes one or more of the following dose reduction techniques: automated exposure control, adjustment of mA and/or kV according to patient size,and/or use of iterative reconstruction technique. IV Contrast dosage and agent: 100 cc of [id number] COMPARISON: Noncontrast head CT dated August 07, 2024 FINDINGS: --CT BRAIN WITHOUT CONTRAST: BRAIN PARENCHYMA: No intra- or extra-axial hemorrhage. No evidence of acute infarct. No intracranial mass or mass effect. There is preservation of the gallagher/white matter interface. Posterior fossa structures are unremarkable. CSF SPACES: Appropriate for age. No hydrocephalus. Basal cisterns are patent. CALVARIUM, SKULL BASE, PARANASAL SINUSES AND MASTOID AIR CELLS: Clear. No discrete lytic or blastic abnormalities. ASPECTS Score for Acute Strokes: 10 --CTA NECK: AORTIC ARCH AND BRANCHES: Normal anatomy, patent. RIGHT CCA: No occlusion, significant stenosis or dissection. RIGHT ICA: No occlusion, significant stenosis or dissection. LEFT CCA: No occlusion, significant stenosis or dissection. LEFT ICA: No occlusion, significant stenosis or dissection. RIGHT VERTEBRAL ARTERY: No occlusion, significant stenosis or dissection. LEFT VERTEBRAL ARTERY: No occlusion, significant stenosis or dissection. NECK SOFT TISSUES: There are bilateral heterogenous thyroid nodules measuring up to 2.3 x 2.0 cm on the right. --CTA HEAD: --Anterior circulation: ICAs: No significant stenosis at the intracranial/visualized segments. ACAs: No significant stenosis at the visualized segments. ACOM: Present. MCAs: No significant stenosis at the visualized segments. --Posterior circulation: PCOMs: Within normal limits. organic chemistry teacher: No significant stenosis at the visualized segments. BASILAR ARTERY: No significant stenosis. VERTEBRAL ARTERIES: No significant stenosis at the intradural/visualized segments. No evidence of intracranial aneurysm or vascular malformation. CT/STROKE CTA Head AND Neck W/Con IMPRESSION: Within normal limits CTA of the head and neck. Bilateral thyroid nodules recommend nonemergent thyroid ultrasound for further evaluation. N.B. : The above Results were Read Back by Yasmin Simons MD to Matthias Birmingham DO, and understanding confirmed on 08/07/2024 20:40:02 (ET). Electronically Signed: Yasmin Simons MD at 20:41 EDT ,
--- NOTE | 2024-08-07 20:04 | ED.RN ---
This RN attempted to complete an NIHSS on this patient. However, the pt. is non-verbal and only responds by yelling. This RN unable to complete the NIHSS appropriately d/t patient's baseline deficits and lack of cooperation. When asked orientation questions or commands, patient just stares at this RN. When this RN assisted the patient's arms to appropriate position to assess drift, the patient does not hold her arms in the air, however, the patient makes other purposeful movement when she wants to. When this RN lifts the legs to assess drift, the patient drops her legs immediately, but reacts to noxious stimuli. The patient did not respond or follow commands for the [facility] neurologist either. Per MD orders, stroke alert and NIHSS checks cancelled d/t the patient not have any new neurological deficits. Assessments completed as able. notified.
--- NOTE | 2024-08-07 20:04 | CT_ITS ---
We are attempting to reach an attending provider to discuss findings. An addendum with communication details will be sent when the communication is complete. INDICATION: Neuro deficit, acute, stroke suspected EXAMINATION: CT BRAIN - CT Head Stroke Protocol W/O Contrast Injection TECHNIQUE: Multiple axial images were obtained of the head without intravenous contrast. The protocol utilizes one or more of the following dose reduction techniques: automated exposure control, adjustment of mA and/or kV according to patient size,and/or use of iterative reconstruction technique. IV Contrast dosage and agent: None. RADIATION DOSAGE (If Supplied By Facility): CTDIvol = ( ) mGy, DLP = ( ) mGycm COMPARISON: March 24, 2024 FINDINGS: BRAIN PARENCHYMA: No intra- or extra-axial hemorrhage. There are bilateral low-attenuation foci within the white matter of the cerebral hemispheres, a nonspecific finding most commonly reflecting a vessel ischemia. There are stable bilateral low-attenuation foci within the basal ganglia and left thalamus suggestive of old lacunar infarcts. No evidence of acute infarct. No intracranial mass or mass effect. There is preservation of the gallagher/white matter interface. Posterior fossa structures are unremarkable. CSF SPACES: Appropriate for age. No hydrocephalus. Basal cisterns are patent. CALVARIUM, SKULL BASE, PARANASAL SINUSES AND MASTOID AIR CELLS: Clear. No discrete lytic or blastic abnormalities. ORBITS: Both globes, extraocular muscles, optic nerves and retrobulbar fat appear unremarkable. ASPECTS Score for Acute Strokes: 10 CT/STROKE Brain/Head without Cont IMPRESSION: Stable examination demonstrating small vessel ischemia and stable lacunar infarct within the basal ganglia and left thalamus. Electronically Signed: Yasmin Simons MD at 20:18 EDT ,
--- NOTE | 2024-08-07 20:15 | RAD_ITS ---
INDICATION: Neuro deficit, acute, stroke suspected EXAMINATION/TECHNIQUE: X-RAY - XR Chest 1 View COMPARISON: No relevant prior comparison study available FINDINGS: LINES/DEVICES: None. LUNGS: No consolidation, edema or effusion. No pneumothorax. MEDIASTINUM AND CARDIOVASCULAR STRUCTURES: Cardiac silhouette not enlarged. Central airways and mediastinal contour are unremarkable. BONES AND SOFT TISSUES: Unremarkable. RAD/Chest 1 View IMPRESSION: No radiographic evidence of acute cardiopulmonary disease. Electronically Signed: Yasmin Simons MD at 20:57 EDT ,
[2024-08-07 20:19] LABS: Absolute Lymphocyte Count 1.44 X10^3/uL (0.83-4.51); Absolute Neutrophil Count 5.4 X10^3/uL (2.0-7.7); Basophil# 0.05 X10^3/uL; Basophil% 0.7 % (0-1); Eosinophil# 0.19 X10^3/uL; Eosinophils% 2.5 % (0-5); Hematocrit 38.2 % (37-47); Hemoglobin 11.8 g/dL (12.0-15.0); Lymphocyte # 1.44 X10^3/ul (0.83-4.51); Lymphocyte % 18.8 % (19-41); Mean Corp Hgb Conc 30.9 g/dL (32-36); Mean Corpuscular Hgb 28.4 pg (27.0-32.0); Mean Corpuscular Volume 91.8 fL (81-99); Mean Platelet Vol. 9.7 fl (6.2-12.0); Monocyte% 7.8 % (0-10); NRBC Flagged by Analyzer 0 % (0-5); Neutrophil # 5.38 X10^3/uL (2.7-7.7); Neutrophil % 69.9 % (47-70); Platelet Count 329 K/mm3 (150-450); RBC Distribution Width CV 14.2 % (11.6-14.6); RBC Distribution Width SD 48.1 fl (35.1-43.9); Red Blood Count 4.16 M/mm3 (4.2-5.4); White Blood Count 7.7 K/mm3 (4.4-11.0)
[2024-08-07 20:29] LABS: International Normalized Ratio 1.1; Prothrombin Time (Protime)PT. 14.5 SECONDS (11.7-14.9)
[2024-08-07 20:30] LABS: Partial Thromboplast Time 36.8 Seconds (24.1-36.2)
[2024-08-07 20:43] LABS: Anion Gap 5 (5-15); BUN 39 mg/dL (7-18); BUN/Creat Ratio 33.3 RATIO (10-20); Calcium,Total 10.2 mg/dL (8.5-10.1); Chloride 113 mmol/L (98-107); Creatinine, Serum 1.17 mg/dL (0.55-1.02); EST Glomerular Filtration Rate 49 mL/min (>60); Est Glom Filt Rate - Afr Amer 59 mL/min (>60); Estimated Creatinine Clearance 40.26 ml/min; Glucose 186 mg/dL (74-106); Potassium 4.2 mmol/L (3.5-5.1); Sodium Level 146 mmol/L (136-145); Troponin-I HS 8 pg/mL (3.0-54.0)
--- NOTE | 2024-08-07 20:53 | ED.VIS.STROK ---
HPI History of Present Illness Chief Complaint: Stroke Alert Informant: patient, EMS and SNF [facility] Medical History Chronic kidney disease Myocardial infarction Hemiparesis CVA (cerebral vascular accident) Dementia Diabetes High cholesterol Breast cancer Anxiety and depression Home Medications ?Medication ?Instructions ?Recorded ?Last Taken ?Type aspirin 81 mg capsule 81 mg PO DAILY 08/07/24 Unknown History atorvastatin 40 mg tablet 40 mg PO DAILY 08/07/24 Unknown History buspirone 5 mg tablet 5 mg PO BID 08/07/24 Unknown History clonazepam 0.5 mg tablet 0.5 mg PO Q8H PRN PRN anxiety 08/07/24 Unknown History divalproex 125 mg capsule,delayed 125 mg PO BID 08/07/24 Unknown History release sprinkle donepezil 5 mg tablet 10 mg PO QHS 08/07/24 Unknown History famotidine 40 mg tablet 40 mg PO DAILY 08/07/24 Unknown History glipizide 5 mg tablet 7.5 mg PO DAILY 08/07/24 Unknown History losartan 25 mg tablet 25 mg PO DAILY 08/07/24 Unknown History metformin 1,000 mg tablet 1,000 mg PO DAILY 08/07/24 Unknown History metformin 850 mg tablet 850 mg PO DAILY 08/07/24 Unknown History metoprolol succinate 100 mg 100 mg PO DAILY 08/07/24 Unknown History tablet,extended release 24 hr mirabegron 25 mg tablet,extended 25 mg PO DAILY 08/07/24 Unknown History release 24 hr mirtazapine 7.5 mg tablet 7.5 mg PO QHS 08/07/24 Unknown History nystatin 100,000 unit/gram topical 1 applic topical BID 08/07/24 Unknown History powder potassium chloride 20 mEq 20 meq PO DAILY 08/07/24 Unknown History tablet,extended release(part/cryst) Allergy/AdvReac Type Severity Reaction Status Date / Time FELICITY Inhibitors Allergy Unknown PT UNABLE Verified 03/24/24 21:51 TO RESPOND-NEEDS F/U eggplant Allergy Unknown PT UNABLE Verified 03/24/24 21:51 TO RESPOND-NEEDS F/U Penicillins Allergy Unknown PT UNABLE Verified 03/24/24 21:51 TO RESPOND-NEEDS F/U Surgical History History of mastectomy Social History Smoking Status: Never smoker ROS ROS ED Review of Systems ROS Unobtainable: due to mental status EXAM Physical Exam Const Vital Signs: 08/07/24 20:00 08/07/24 20:01 08/07/24 20:04 Temperature 98.2 F Temperature Source Oral Pulse Rate 76 76 76 Respiratory Rate 12 12 12 Blood Pressure 135/77 H 135/77 H 135/77 H Blood Pressure Mean 96 96 96 Pulse Ox 98 Oxygen Delivery Method Room Air Room Air 08/07/24 20:30 08/07/24 21:01 08/07/24 22:00 Temperature Temperature Source Pulse Rate 73 65 Respiratory Rate 16 16 Blood Pressure 150/86 H 165/83 H Blood Pressure Mean 107 110 Pulse Ox 98 98 98 Oxygen Delivery Method Room Air Room Air Room Air 08/07/24 22:35 08/07/24 22:37 Temperature 97.8 F 97.8 F Temperature Source Oral Pulse Rate 65 65 Respiratory Rate 16 16 Blood Pressure 165/83 H 165/83 H Blood Pressure Mean 110 110 Pulse Ox 98 98 Oxygen Delivery Method Room Air Positive well nourished and well developed General Appearance ED: well developed and NAD HEENT Reports normocephalic, head/scalp atraumatic and moist mucous membranes HEENT Narrative: Patient drooling appears to have a small amount of emesis on her left chest. Head is tilted to the left Nose: other Eyes PERRL and EOMs intact bilaterally Neck no lymphadenopathy, supple and no JVD Resp normal respiratory effort and clear to auscultation bilaterally Cardio regular rate, regular rhythm and no murmurs GI normal to inspection, nondistended, normoactive bowel sounds and non-tender Palpation: soft Back/Spine no CVA tenderness and normal ROM Extremity normal to inspection General Extremety ED: Negative for edema General Extremity: Negative for edema Neuro Neuro Narrative: Patient turns her head towards me when I call her name. Otherwise I cannot get her to perform any movement of arms or legs. She does not speak. She will withdrawal to pain. Skin no rashes or lesions noted and no wounds MDM MDM MDM Narrative Medical decision making narrative: Prehospital stroke team was called. In my assessment in the ambulance with very difficult on this patient to get any type of examination as she is not speaking and not moving other than turning her head when I call her name. She was taken to CT where initial head CT showed no acute findings and CTA did not demonstrate an LVO. She was assessed by neurology and felt not to be a tPA candidate. There is no definitive stroke syndrome noted. Other causes were then looked at. Her EKG is a normal sinus rhythm with a rate of 72 white count 7.7 hemoglobin 11.8 platelet count 329. Sodium 146 BUN of 39 creatinine 1.17 which is slightly elevated off her baseline troponin normal at 8. Urinalysis demonstrated 10-25 white cells 2+ bacteria positive nitrates positive leukocyte Estrace was sent for culture. Toxicology of valproic acid level 14 positive benzodiazepines. Based on prior urine cultures patient received ceftriaxone as well as some IV fluids. I do not feel strongly that the patient had a stroke. She did start to speak some for nursing and move her extremities. I did not see any seizure activities nor was there any seizure activities noted at assisted. I do wonder if this is all related to UTI. She said no events on the monitor to suggest at this time of the cardiac dysrhythmia or cardiac event. We will plan on admitting her to the hospital. Nursing spoke with and he will not be coming to the ED. History & Record Review Discussion w/independent historian: EMS personnel and Significant other Additional record(s) reviewed:: Prior inpatient record, Prior ED visit and Prior labs Lab Data Attestation: I reviewed the patient's lab results. Labs: Laboratory Results - last 24 hr 08/07/24 08/07/24 08/07/24 20:10 21:30 22:50 WBC 7.7 RBC 4.16 L Hgb 11.8 L Hct 38.2 MCV 91.8 MCH 28.4 MCHC 30.9 L RDW Std Deviation 48.1 H RDW Coeff of Jose 14.2 Plt Count 329 MPV 9.7 Immature Gran % (Auto) 0.300 Neut % (Auto) 69.9 Lymph % (Auto) 18.8 L [place] % (Auto) 7.8 Eos % (Auto) 2.5 Baso % (Auto) 0.7 Absolute Neuts (auto) 5.4 Absolute Lymphs (auto) 1.44 Nucleated RBC % 0 PT 14.5 INR 1.1 APTT 36.8 H Sodium 146 H Potassium 4.2 Chloride 113 H Carbon Dioxide 28.0 Anion Gap 5 BUN 39 H Creatinine 1.17 H Estim Creat Clear Calc 40.26 Est GFR (MDRD) Af Amer 59 L Est GFR (MDRD) Non-Af 49 L BUN/Creatinine Ratio 33.3 H Glucose 186 H Calcium 10.2 H Troponin I High Sens 8 Urine Color Yellow Urine Clarity Clear Urine pH 6.5 Ur Specific [place] 1.005 Urine Protein 30 H Urine Glucose (UA) Normal Urine Ketones Negative Urine Occult Blood 10 H Urine Nitrite Positive H Urine Bilirubin Negative Urine Urobilinogen 1 H Ur Leukocyte Esterase 500 H Urine RBC 0-5 SEEN Urine WBC 10-25 SEEN Ur Squamous Epith Cells 0 SEEN Ur Renal Epithelial Cell 0-5 SEEN Urine Bacteria 2+ Urine Mucus 0 SEEN Urine Opiates Screen NEGATIVE Urine Methadone Screen NEGATIVE Ur Barbiturates Screen NEGATIVE Valproic Acid 14 L Ur Phencyclidine Scrn NEGATIVE Ur Amphetamines Screen NEGATIVE MDMA (Ecstasy) Screen NEGATIVE U Benzodiazepines Scrn POSITIVE H Urine Cocaine Screen NEGATIVE U Cannabinoids Screen NEGATIVE Ur Drug Screen Comment Radiography Diagnostic Testing: Clinical Impression(s) from Imaging Studies Brain CT 08/07/24 20:04 IMPRESSION: Stable examination demonstrating small vessel ischemia and stable lacunar infarct within the basal ganglia and left thalamus. Electronically Signed: Yasmin Simons MD at 20:18 EDT , ADDENDUM: 08/07/242040 IMPRESSION: Stable examination demonstrating small vessel ischemia and stable lacunar infarct within the basal ganglia and left thalamus. N.B. : The above Results were Read Back by Yasmin Simons MD to Matthias Birmingham DO, and understanding confirmed on 08/07/2024 20:34:32 (ET). Electronically Signed: Yasmin Simons MD at 20:18 EDT , Head/Neck CTA 08/07/24 20:04 IMPRESSION: Within normal limits CTA of the head and neck. Bilateral thyroid nodules recommend nonemergent thyroid ultrasound for further evaluation. N.B. : The above Results were Read Back by Yasmin Simons MD to Matthias Birmingham DO, and understanding confirmed on 08/07/2024 20:40:02 (ET). Electronically Signed: Yasmin Simons MD at 20:41 EDT , ADDENDUM: 08/07/242047 IMPRESSION: Within normal limits CTA of the head and neck. Bilateral thyroid nodules recommend nonemergent thyroid ultrasound for further evaluation. N.B. : The above Results were Read Back by Yasmin Simons MD to Matthias Birmingham DO, and understanding confirmed on 08/07/2024 20:40:02 (ET). Electronically Signed: Yasmin Simons MD at 20:41 EDT , Chest X-Ray 08/07/24 20:15 IMPRESSION: No radiographic evidence of acute cardiopulmonary disease. Electronically Signed: Yasmin Simons MD at 20:57 EDT , EKG Initial EKG: Attestation: I personally reviewed and interpreted this EKG as follows: Comments: Normal sinus rhythm ventricular rate of 72 bpm. No ischemic changes noted Management Discussion w/another healthcare provider: Hospitalist (Dr Donahue), Hazardous Materials Handler ([facility]) and Radiologist Discharge Plan Disposition Disposition: Acute Care Hospital [facility] Discharge Date/Time: 08/07/24 23:44
[2024-08-07] MEDS: 0.9% Normal Saline (1000mL) 1,000 ML 999 ML IV (21:31)
[2024-08-07 21:34] LABS: Mucous, Urine 0 SEEN /hpf (<or=2+); Squamous Epithelial Cells - UA 0 SEEN /hpf (5-10)
[2024-08-07 21:36] LABS: Color, Urine Yellow (Yellow); Glucose, Dipstick Normal (Normal); Ketone-Dipstick Negative (Negative); Leukocyte Esterase-Dipstick 500 /ul (Negative); Nitrite-Dipstick Positive (Negative); Occult Blood-Urine 10 /ul (Negative); Protein-Dipstick 30 mg/dl (Negative); Specific Gravity, Urine 1.005 (1.002-1.030); Urine Bilirubin Dipstick Negative (Negative); Urine Clarity Clear (Clear); Urine Urobilinogen 1 mg/dl (Normal); Urine pH 6.5 (5.0 - 8.0)
[2024-08-07 21:45] LABS: Bacteria 2+ /hpf (None Seen); Red Blood Cells-Urine 0-5 SEEN /hpf (0-5); Renal Epithelial Cells 0-5 SEEN /hpf (0-5); White Blood Cells 10-25 SEEN /hpf (0-5)
--- NOTE | 2024-08-07 22:00 | ED.RN ---
Consent obtained over the phone from to treat pt. Per pt has been declined the last couple of weeks. Has an increase in pocketing food, not really talking to much-roughly 6 words in the last two weeks. Stating she has had 3 previous strokes last one being in 2022. Requesting to be called when all results are back and where pt will be going. [facility] updated.
--- NOTE | 2024-08-07 22:30 | ED.RN ---
This RN went into the patient's room to draw the ordered blood work off of the patient's IV, to complete a set of vital signs, and to hang an antibiotic for the treatment of her UTI. The patient became non-compliant, not opening her mouth for a temperature and swatting my hands away from her arm when attempting to get blood work. This RN explained to the patient why I had to do these things and the patient was still apprehensive. This RN was able to verbally deescalate the patient in order to perform the necessary tasks. notified.
--- NOTE | 2024-08-07 22:33 | HP.PCM.HOS_ITS ---
[facility] - General General Date of Admission: 08/07/24 Date of Service: 08/07/24 Chief Complaint: AMS. HPI Narrative MARCELLO LAU [facility], is a 69 F with a past medical history of essential hypertension, hyperlipidemia, CKD; stage II-III, DM-2; of unknown control on Glipizide and Metformin, CAD; s/p CO, history of CVA; with residual hemiparesis, dementia; on Donepezil, history of seizures; on Divalproex, depression with anxiety; on Buspirone, Mirtazapine and Clonazepam, history of breast cancer; s/p mastectomy, overactive bladder; with history of recurrent UTI's, GERD and OA who currently resides at [facility] who was sent in to [facility] by [facility] staff after they noticed AMS. Mrs. Lau is not a reliable historian at this time so information was gathered from chart, medical staff and computer. According to the records and then patient's who spoke to the ER physician by phone she has been becoming increasingly confused and lethargic over the past week. He stated she has had similar episodes in the past that have been due primarily to metabolic encephalopathy from UTI's. Because of her AMS a 'stroke-alert' was activated by EMS with admission head CT negative for acute pathologic changes. In the ER she was noted to have UA positive for Acute Cystitis; with microscopic hematuria complicated by laboratory evidence of Dehydration; with BUN/creatinine ration of 33.3 present on admission compounded by clinical evidence of Acute Metabolic Encephalopathy in the setting of known Chronic Dementia with UDS positive only for prescribed benzodiazepines and she was then admitted to the PCU for ongoing care for a stay that is expected to extend beyond 2 midnights. [facility] Medical History Chronic kidney disease Myocardial infarction Hemiparesis CVA (cerebral vascular accident) Dementia Diabetes High cholesterol Breast cancer Anxiety and depression Home Medications ?Medication ?Instructions ?Recorded ?Last Taken ?Type aspirin 81 mg capsule 81 mg PO DAILY 08/07/24 Unknown History atorvastatin 40 mg tablet 40 mg PO DAILY 08/07/24 Unknown History buspirone 5 mg tablet 5 mg PO BID 08/07/24 Unknown History clonazepam 0.5 mg tablet 0.5 mg PO Q8H PRN PRN anxiety 08/07/24 Unknown History divalproex 125 mg capsule,delayed 125 mg PO BID 08/07/24 Unknown History release sprinkle donepezil 5 mg tablet 10 mg PO QHS 08/07/24 Unknown History famotidine 40 mg tablet 40 mg PO DAILY 08/07/24 Unknown History glipizide 5 mg tablet 7.5 mg PO DAILY 08/07/24 Unknown History losartan 25 mg tablet 25 mg PO DAILY 08/07/24 Unknown History metformin 1,000 mg tablet 1,000 mg PO DAILY 08/07/24 Unknown History metformin 850 mg tablet 850 mg PO DAILY 08/07/24 Unknown History metoprolol succinate 100 mg 100 mg PO DAILY 08/07/24 Unknown History tablet,extended release 24 hr mirabegron 25 mg tablet,extended 25 mg PO DAILY 08/07/24 Unknown History release 24 hr mirtazapine 7.5 mg tablet 7.5 mg PO QHS 08/07/24 Unknown History nystatin 100,000 unit/gram topical 1 applic topical BID 08/07/24 Unknown History powder potassium chloride 20 mEq 20 meq PO DAILY 08/07/24 Unknown History tablet,extended release(part/cryst) Allergy/AdvReac Type Severity Reaction Status Date / Time FELICITY Inhibitors Allergy Unknown PT UNABLE Verified 03/24/24 21:51 TO RESPOND-NEEDS F/U eggplant Allergy Unknown PT UNABLE Verified 03/24/24 21:51 TO RESPOND-NEEDS F/U Penicillins Allergy Unknown PT UNABLE Verified 03/24/24 21:51 TO RESPOND-NEEDS F/U Surgical History History of mastectomy Social History Smoking Status: Never smoker ROS ROS Narrative Full ROS was not possible due to this patient's metabolic encephalopathy. Vital Signs Vital Signs Vital Signs: 08/07/24 20:00 08/07/24 20:01 08/07/24 20:04 Temperature 98.2 F Temperature Source Oral Pulse Rate 76 76 76 Respiratory Rate 12 12 12 Blood Pressure 135/77 H 135/77 H 135/77 H Blood Pressure Mean 96 96 96 Pulse Ox 98 Oxygen Delivery Method Room Air Room Air 08/07/24 20:30 08/07/24 21:01 Temperature Temperature Source Pulse Rate 73 Respiratory Rate 16 Blood Pressure 150/86 H Blood Pressure Mean 107 Pulse Ox 98 98 Oxygen Delivery Method Room Air Room Air Weight Weight: 147 lb 11.355 oz Body Mass Index (BMI) 24.5 Physical Exam Const alert Orientation / Consciousness: confused and lethargic HEENT normocephalic, head/scalp atraumatic and hearing grossly normal bilaterally HEENT Narrative: Mucous membranes dry. Eyes PERRL and EOMs intact bilaterally Neck no lymphadenopathy and supple Results Medical Records Data Attestation: I reviewed the patient's medical records Lab / Micro Data Attestation: I reviewed the patient's lab results. 08/07/24 20:10 08/07/24 20:10 Labs: Laboratory Results - last 24 hr 08/07/24 20:10: WBC 7.7, RBC 4.16 L, Hgb 11.8 L, Hct 38.2, MCV 91.8, MCH 28.4, M CHC 30.9 L, RDW Std Deviation 48.1 H, RDW Coeff of Jose 14.2, Plt Count 329, MPV 9.7, Immature Gran % (Auto) 0.300, Neut % (Auto) 69.9, Lymph % (Auto) 18.8 L, [place] % (Auto) 7.8, Eos % (Auto) 2.5, Baso % (Auto) 0.7, Absolute Neuts (auto) 5.4, Absolute Lymphs (auto) 1.44, Nucleated RBC % 0, PT 14.5, INR 1.1, APTT 36.8 H, Sodium 146 H, Potassium 4.2, Chloride 113 H, Carbon Dioxide 28.0, Anion Gap 5, BUN 39 H, Creatinine 1.17 H, Estim Creat Clear Calc 40.26, Est GFR (MDRD) Af Amer 59 L, Est GFR (MDRD) Non-Af 49 L, BUN/Creatinine Ratio 33.3 H, Glucose 186 H, Calcium 10.2 H, Troponin I High Sens 8 08/07/24 21:30: Urine Color Yellow, Urine Clarity Clear, Urine pH 6.5, Ur Specific [place] 1.005, Urine Protein 30 H, Urine Glucose (UA) Normal, Urine Ketones Negative, Urine Occult Blood 10 H, Urine Nitrite Positive H, Urine Bilirubin Negative, Urine Urobilinogen 1 H, Ur Leukocyte Esterase 500 H, Urine RBC 0-5 SEEN, Urine WBC 10-25 SEEN, Ur Squamous Epith Cells 0 SEEN, Ur Renal Epithelial Cell 0-5 SEEN, Urine Bacteria 2+, Urine Mucus 0 SEEN Imaging Radiology Impression Brain CT 08/07/24 20:04 IMPRESSION: Stable examination demonstrating small vessel ischemia and stable lacunar infarct within the basal ganglia and left thalamus. Electronically Signed: Yasmin Simons MD at 20:18 EDT , ADDENDUM: 08/07/242040 IMPRESSION: Stable examination demonstrating small vessel ischemia and stable lacunar infarct within the basal ganglia and left thalamus. N.B. : The above Results were Read Back by Yasmin Simons MD to Matthias Birmingham DO, and understanding confirmed on 08/07/2024 20:34:32 (ET). Electronically Signed: Yasmin Simons MD at 20:18 EDT , Head/Neck CTA 08/07/24 20:04 IMPRESSION: Within normal limits CTA of the head and neck. Bilateral thyroid nodules recommend nonemergent thyroid ultrasound for further evaluation. N.B. : The above Results were Read Back by Yasmin Simons MD to Matthias Birmingham DO, and understanding confirmed on 08/07/2024 20:40:02 (ET). Electronically Signed: Yasmin Simons MD at 20:41 EDT , ADDENDUM: 08/07/242047 IMPRESSION: Within normal limits CTA of the head and neck. Bilateral thyroid nodules recommend nonemergent thyroid ultrasound for further evaluation. N.B. : The above Results were Read Back by Yasmin Simons MD to Matthias Birmingham DO, and understanding confirmed on 08/07/2024 20:40:02 (ET). Electronically Signed: Yasmin Simons MD at 20:41 EDT , Chest X-Ray 08/07/24 20:15 IMPRESSION: No radiographic evidence of acute cardiopulmonary disease. Electronically Signed: Yasmin Simons MD at 20:57 EDT , Assessment & Plan Assessment/Plan (1) Acute cystitis without hematuria: (2) Dehydration: (3) Metabolic encephalopathy: (4) Chronic dementia: (5) Depression with anxiety: (6) History of CVA (cerebrovascular accident): PLAN: Plan 1. Acute Cystitis; with microscopic hematuria in the setting of known overactive bladder with a history of recurrent UTI's - Admit to PCU. Continue empiric IV Rocephin begun in the ER and await culture and sensitivity data. Give Tylenol prn pain or fever. 2. Dehydration; evidenced by BUN/creatinine ration of 33.3 present on admission in the setting of known CKD; stage II-III complicating #1 - Aggressively volume resuscitate and then recheck renal indices in AM to ensure improvement. 3. Acute Metabolic Encephalopathy in the setting of Chronic Dementia compounding #1 & #2 - Minimize DRUG ABUSE RESISTANCE EDUCATION OFFICER-active medications. Otherwise, continue treatment as outlined above and monitor for improvement. 4. Depression with anxiety; on Buspirone, Mirtazapine and Clonazepam adding to the medical complexity of #1 - #3 - Check UDS and hold Clonazepam until sensorium clears. 5. History of CVA; with residual hemiparesis - Noted. 6. DM-2; of unknown control on Glipizide and Metformin - Hold these agents for now. ADA diet. FSBA q. AC/HS plus SSI. Check HgbA1c to objectively evaluate quality of diabetic control. 7. Essential hypertension - Resume home regimen plus give prn IV Hydralazine for systolic blood pressure > 160 mmHg. 8. Hyperlipidemia - Continue statin and check Lipid Profile. 9. CAD; s/p CO - Noted. 10. History of seizures; on Divalproex - Check valproic acid level and restart this agent if it is in acceptable therpaeutic range. 11. History of breast cancer; s/p mastectomy - Noted. 12. GERD - Resume Pecid as previous. 13. OA - Give Tylenol prn. 14. DVT prophylaxis - Lovenox 40 mg sq daily plus SCD's. Total time: Approximately 75 minutes. Charges/Coding Visit Charges Inpatient E&M: 46278 Init Hosp L3
[2024-08-07] MEDS: Ceftriaxone 1 GM/50 ML BAG IV (22:45)
[2024-08-07 23:10] LABS: Amphetamine Urine VISTA NEGATIVE (<1000 ng/mL); Barbiturate Urine VISTA NEGATIVE (< 200 ng/mL); Benzodiazepine Urine VISTA POSITIVE (< 200 ng/mL); Cocaine Urine VISTA NEGATIVE (< 300 ng/mL); Ecstacy Urine VISTA NEGATIVE (< 500 ng/mL); Methadone Urine VISTA NEGATIVE (< 300 ng/mL); PCP Urine VISTA NEGATIVE (< 25 ng/mL); THC Urine VISTA NEGATIVE (< 50 ng/mL); Vista UDS pH Range 5
--- NOTE | 2024-08-07 23:15 | ED.RN ---
This RN notified patient's and [facility] of the patient's status and admission.
[2024-08-07 23:25] LABS: Valproic Acid (Depakene) Level 14 ug/mL (50-100)
[2024-08-07] MEDS: 0.9% Normal Saline (1000mL) 1,000 ML 75 ML IV (23:56)
[2024-08-08] VITALS (10 sets, daily range): BP systolic 144–194; BP diastolic 72–89; PULSE 60–72; RESP 14–16; TEMP 35.8–36.6; O2SAT 93–100; BMI 26.4
[2024-08-08] MEDS: 0.9% Saline Lock 10 ML Syringe IV (05:39)
[2024-08-08] MEDS: hydrALAZINE 20 MG/ML Vial 10 MG IV (05:39)
[2024-08-08 06:55] LABS: Absolute Lymphocyte Count 1.24 X10^3/uL (0.83-4.51); Absolute Neutrophil Count 4.6 X10^3/uL (2.0-7.7); Basophil# 0.05 X10^3/uL; Basophil% 0.7 % (0-1); Eosinophil# 0.19 X10^3/uL; Eosinophils% 2.8 % (0-5); Hematocrit 37.8 % (37-47); Hemoglobin 11.4 g/dL (12.0-15.0); Lymphocyte # 1.24 X10^3/ul (0.83-4.51); Lymphocyte % 18.5 % (19-41); Mean Corp Hgb Conc 30.2 g/dL (32-36); Mean Corpuscular Hgb 28.1 pg (27.0-32.0); Mean Corpuscular Volume 93.1 fL (81-99); Monocyte# 0.59 X10^3/uL; Monocyte% 8.8 % (0-10); NRBC Flagged by Analyzer 0 % (0-5); Neutrophil # 4.61 X10^3/uL (2.7-7.7); Neutrophil % 68.9 % (47-70); Platelet Count 286 K/mm3 (150-450); RBC Distribution Width CV 14.1 % (11.6-14.6); RBC Distribution Width SD 48.1 fl (35.1-43.9); Red Blood Count 4.06 M/mm3 (4.2-5.4); White Blood Count 6.7 K/mm3 (4.4-11.0)
[2024-08-08 07:00] LABS: Bedside Glucose 124 mg/dL (74-106)
[2024-08-08 08:08] LABS: ALB/GLOB Ratio 0.7 RATIO (0.9-2.4); AST(SGOT) 7 U/L (15-37); Alanine Aminotransfer ALT/SGPT < 6 U/L (13-56); Albumin, Serum 2.7 g/dL (3.2-5.0); Alkaline Phosphatase 63 U/L (45-117); Anion Gap 5 (5-15); BUN 28 mg/dL (7-18); BUN/Creat Ratio 42.9 RATIO (10-20); Calcium,Total 9.2 mg/dL (8.5-10.1); Chloride 117 mmol/L (98-107); Creatinine, Serum 0.65 mg/dL (0.55-1.02); EST Glomerular Filtration Rate 95 mL/min (>60); Est Glom Filt Rate - Afr Amer 115 mL/min (>60); Estimated Creatinine Clearance 65.16 ml/min; Globulin 4.1 g/dL (2.2-4.2); Glucose 119 mg/dL (74-106); Magnesium 1.4 mg/dL (1.6-2.6); Phosphorus 2.9 mg/dL (2.5-4.9); Potassium 3.8 mmol/L (3.5-5.1); Protein, Total 6.8 g/dL (6.4-8.2); Sodium Level 145 mmol/L (136-145)
[2024-08-08 08:34] LABS: Hemoglobin A1c 6.2 % (3.8-5.6)
[2024-08-08] MEDS: busPIRone 5 MG Tablet PO ×2 (09:00→22:11)
[2024-08-08] MEDS: Aspirin 81 MG TAB.CHEW PO (09:01)
[2024-08-08] MEDS: Potassium Chloride Oral Tablet 20 MEQ PO (09:01)
[2024-08-08] MEDS: Lactobacillis Acidophilus 1 CAP PO ×4 (09:01→22:10)
[2024-08-08] MEDS: Losartan Potassium 25 MG Tablet PO (09:02)
[2024-08-08] MEDS: Vibegron 75 MG TABLET PO (09:02)
[2024-08-08] MEDS: Famotidine 20 MG Tablet 10 MG PO ×2 (09:02→22:10)
[2024-08-08] MEDS: Metoprolol(XL)Succ 100 MG Tablet PO (09:03)
[2024-08-08] MEDS: Divalproex Sodium 125 MG SPRINKLE PO ×2 (09:03→22:10)
[2024-08-08] MEDS: Enoxaparin 40 MG/0.4 ML Syringe SC (09:13)
[2024-08-08] MEDS: Nystatin Powder 15gm Bottle 1 APPLIC TOPICAL ×2 (09:14→22:41)
--- NOTE | 2024-08-08 09:57 | CASEMGMT ---
Patient is from [facility]. SW called patient's Rui and confirmed patient's plan will be to return to [facility] when ready. SW asked Shivani to send updates and check to see if patient needs a pre-cert to return. Plan: d/c back to [facility]. Jaquelin VALDOVINOS
--- NOTE | 2024-08-08 10:14 | CASEMGMT ---
Addendum entered by Shivani Hardin 08/08/24 11:19: Patient will not need precert to return. Shivani Hardin DC Planning Asst. Original Note: Discharge Planning Updates sent to [facility] via [facility]. Asked if precert is needed to return. Awaiting response. Shivani Hardin DC Planning Asst.
[2024-08-08] MEDS: Insulin Lispro 100 UNIT/ML INSULN.PEN SC ×2 (11:59→16:59)
[2024-08-08 12:30] LABS: Bedside Glucose 191 mg/dL (74-106)
--- NOTE | 2024-08-08 13:29 | PN.HOSP_ITS ---
Subjective Subjective Had a stroke alert called overnight however it appears that her facial features are her baseline at this time Objective Data Objective Data Vital Signs: Vital Signs Temp Pulse Resp BP Pulse Ox O2 Del Method 97.8 F 72 16 144/72 H 95 Room Air 08/08/24 08:46 08/08/24 09:03 08/08/24 08:46 08/08/24 08:46 08/08/24 08:46 08/08/24 09:15 Oxygen Delivery Method Room Air Weight: 159 lb 2.78 oz Body Mass Index (BMI) 26.4 Intake & Output: Intake and Output for Last 24 Hours 08/07/24 08/08/24 08/09/24 03:59 03:59 03:59 Intake Total 1050 / 1050 Balance 1050 / 1050 Lab / Micro Data 08/08/24 06:17 08/08/24 06:17 Labs: Laboratory Results - last 24 hr 08/07/24 20:10: WBC 7.7, RBC 4.16 L, Hgb 11.8 L, Hct 38.2, MCV 91.8, MCH 28.4, M CHC 30.9 L, RDW Std Deviation 48.1 H, RDW Coeff of Jose 14.2, Plt Count 329, MPV 9.7, Immature Gran % (Auto) 0.300, Neut % (Auto) 69.9, Lymph % (Auto) 18.8 L, Hall % (Auto) 7.8, Eos % (Auto) 2.5, Baso % (Auto) 0.7, Absolute Neuts (auto) 5.4, Absolute Lymphs (auto) 1.44, Nucleated RBC % 0, PT 14.5, INR 1.1, APTT 36.8 H, Sodium 146 H, Potassium 4.2, Chloride 113 H, Carbon Dioxide 28.0, Anion Gap 5, BUN 39 H, Creatinine 1.17 H, Estim Creat Clear Calc 40.26, Est GFR (MDRD) Af Amer 59 L, Est GFR (MDRD) Non-Af 49 L, BUN/Creatinine Ratio 33.3 H, Glucose 186 H, Calcium 10.2 H, Troponin I High Sens 8 08/07/24 21:30: Urine Color Yellow, Urine Clarity Clear, Urine pH 6.5, Ur Specific [place] 1.005, Urine Protein 30 H, Urine Glucose (UA) Normal, Urine Ketones Negative, Urine Occult Blood 10 H, Urine Nitrite Positive H, Urine Bilirubin Negative, Urine Urobilinogen 1 H, Ur Leukocyte Esterase 500 H, Urine RBC 0-5 SEEN, Urine WBC 10-25 SEEN, Ur Squamous Epith Cells 0 SEEN, Ur Renal Epithelial Cell 0-5 SEEN, Urine Bacteria 2+, Urine Mucus 0 SEEN, Urine Opiates Screen NEGATIVE, Urine Methadone Screen NEGATIVE, Ur Barbiturates Screen NEGATIVE, Ur Phencyclidine Scrn NEGATIVE, Ur Amphetamines Screen NEGATIVE, MDMA (Ecstasy) Screen NEGATIVE, U Benzodiazepines Scrn POSITIVE H, Urine Cocaine Screen NEGATIVE, U Cannabinoids Screen NEGATIVE, Ur Drug Screen Comment 08/07/24 22:50: Valproic Acid 14 L 08/08/24 06:17: WBC 6.7, RBC 4.06 L, Hgb 11.4 L, Hct 37.8, MCV 93.1, MCH 28.1, M CHC 30.2 L, RDW Std Deviation 48.1 H, RDW Coeff of Jose 14.1, Plt Count 286, MPV 10.0, Immature Gran % (Auto) 0.300, Neut % (Auto) 68.9, Lymph % (Auto) 18.5 L, Hall % (Auto) 8.8, Eos % (Auto) 2.8, Baso % (Auto) 0.7, Absolute Neuts (auto) 4.6, Absolute Lymphs (auto) 1.24, Nucleated RBC % 0, Sodium 145, Potassium 3.8, Chloride 117 H, Carbon Dioxide 23.0, Anion Gap 5, BUN 28 H, Creatinine 0.65, Estim Creat Clear Calc 65.16, Est GFR (MDRD) Af Amer 115, Est GFR (MDRD) Non-Af 95, BUN/Creatinine Ratio 42.9 H, Glucose 119 H, Hemoglobin A1c 6.2 H, Calcium 9.2, Phosphorus 2.9, Magnesium 1.4 L, Total Bilirubin 0.30, AST 7 L, ALT < 6 L, Alkaline Phosphatase 63, Total Protein 6.8, Albumin 2.7 L, Globulin 4.1, A lbumin/Globulin Ratio 0.7 L, TSH 1.380 08/08/24 06:37: POC Glucose 124 H 08/08/24 11:49: POC Glucose 191 H Micro: Microbiology 08/07/24 21:30 Urine, Clean Catch Urine Culture - Preliminary GNR lactose rehabilitation caseworker Radiography Diagnostic Testing: Radiology Impression Brain CT 08/07/24 20:04 IMPRESSION: Stable examination demonstrating small vessel ischemia and stable lacunar infarct within the basal ganglia and left thalamus. Electronically Signed: Yasmin Simons MD at 20:18 EDT , ADDENDUM: 08/07/242040 IMPRESSION: Stable examination demonstrating small vessel ischemia and stable lacunar infarct within the basal ganglia and left thalamus. N.B. : The above Results were Read Back by Yasmin Simons MD to Matthias Birmingham DO, and understanding confirmed on 08/07/2024 20:34:32 (ET). Electronically Signed: Yasmin Simons MD at 20:18 EDT Reading Location ID and State: [facility] / [place] Tel , Service support , Head/Neck CTA 08/07/24 20:04 IMPRESSION: Within normal limits CTA of the head and neck. Bilateral thyroid nodules recommend nonemergent thyroid ultrasound for further evaluation. N.B. : The above Results were Read Back by Yasmin Simons MD to Matthias Birmingham DO, and understanding confirmed on 08/07/2024 20:40:02 (ET). Electronically Signed: Yasmin Simons MD at 20:41 EDT , ADDENDUM: 08/07/242047 IMPRESSION: Within normal limits CTA of the head and neck. Bilateral thyroid nodules recommend nonemergent thyroid ultrasound for further evaluation. N.B. : The above Results were Read Back by Yasmin Simons MD to Matthias Birmingham DO, and understanding confirmed on 08/07/2024 20:40:02 (ET). Electronically Signed: Yasmin Simons MD at 20:41 EDT , Chest X-Ray 08/07/24 20:15 IMPRESSION: No radiographic evidence of acute cardiopulmonary disease. Electronically Signed: Yasmin Simons MD at 20:57 EDT , Physical Exam Narrative General: Somnolent but alert to voice, nonverbal this morning, Cooperative, No apparent distress HEENT: Atraumatic, PERRLA, EOMI, Normocephalic Oral: Moist Mucosa Neck: Supple, No JVD Lungs: Diminished, Normal air movement, No rhonchi, No wheeze, No rales Cardiovascular: Regular rate, Regular Rhythm, Normal S1, Normal S2, No murmurs Abdomen: Soft, Non Tender, Non-Distended, No Hepato-splenomegaly Extremities: No edema, Capillary Refill Less than 3 Seconds Skin: No rashes, No breakdown Musculoskeletal: No Tenderness to Palpation of Joints or Extremities Neurological: No focal neurological deficits, she does appear to be at baseline Psych/Mental Status: Flat Assessment & Plan Assessment/Plan (1) Acute cystitis without hematuria: (2) Dehydration: (3) Metabolic encephalopathy: (4) Chronic dementia: (5) Depression with anxiety: (6) History of CVA (cerebrovascular accident): PLAN: Plan 1. Acute metabolic encephalopathy secondary to UTI ? Urine culture with gram-negative rods ? Continue with antibiotics ? Awaiting sensitivities prior to discharge she can be discharged back to SNF without pre-CERT this weekend if necessary 2. Essential HTN/HLD/CAD/history of CVA ? Continue with her home blood pressure medications ? Will monitor make adjustments as necessary ? Continue with her home cholesterol medication 3. DM2 ? Will hold her home medications ? Accu-Cheks ACHS ? Sliding scale insulin ? Will monitor make adjustments as necessary 4. History of seizures ? Continue with her home medications ? Stable 5. GERD ? Stable ? Continue with Pepcid 6. Anxiety/depression ? Stable ? Continue with her home medications DVT: Lovenox Charges/Coding Visit Charges Inpatient E&M: 68786 Subs Hosp L2
[2024-08-08] MEDS: 0.9% Normal Saline (1000mL) 1,000 ML 75 ML IV (13:43)
[2024-08-08] MEDS: Magnesium Sulfate 2 GM in Dextrose 5%-Water (100mL Bag) 100 ML IV (14:02)
[2024-08-08] MEDS: Acetaminophen 325 MG Tablet 650 MG PO (14:06)
[2024-08-08 17:35] LABS: Bedside Glucose 161 mg/dL (74-106)
[2024-08-08] MEDS: Donepezil HCl 10 MG Tablet PO (22:10)
[2024-08-08] MEDS: Mirtazapine 15 MG Tablet 7.5 MG PO (22:10)
[2024-08-08] MEDS: Atorvastatin Calcium 40 MG Tablet PO (22:11)
[2024-08-08] MEDS: Ceftriaxone 1 GM/50 ML BAG IV (22:11)
[2024-08-08 22:55] LABS: Bedside Glucose 124 mg/dL (74-106)
[2024-08-09 04:30] VITALS: BP 185/82; PULSE 56; RESP 18; TEMP 36.3; O2SAT 95
[2024-08-09 04:54] VITALS: BMI 27.2
[2024-08-09] MEDS: 0.9% Normal Saline (1000mL) 1,000 ML 75 ML IV (05:04)
[2024-08-09 06:10] LABS: Absolute Lymphocyte Count 1.31 X10^3/uL (0.83-4.51); Absolute Neutrophil Count 3.8 X10^3/uL (2.0-7.7); Basophil# 0.04 X10^3/uL; Basophil% 0.7 % (0-1); Eosinophil# 0.27 X10^3/uL; Eosinophils% 4.6 % (0-5); Hematocrit 33.6 % (37-47); Hemoglobin 10.7 g/dL (12.0-15.0); Lymphocyte # 1.31 X10^3/ul (0.83-4.51); Lymphocyte % 22.5 % (19-41); Mean Corp Hgb Conc 31.8 g/dL (32-36); Mean Corpuscular Hgb 28.5 pg (27.0-32.0); Mean Corpuscular Volume 89.6 fL (81-99); Mean Platelet Vol. 9.1 fl (6.2-12.0); Monocyte% 6.9 % (0-10); NRBC Flagged by Analyzer 0 % (0-5); Neutrophil # 3.79 X10^3/uL (2.7-7.7); Platelet Count 270 K/mm3 (150-450); RBC Distribution Width SD 45.8 fl (35.1-43.9); Red Blood Count 3.75 M/mm3 (4.2-5.4); White Blood Count 5.8 K/mm3 (4.4-11.0)
[2024-08-09 06:37] LABS: Anion Gap 6 (5-15); BUN 12 mg/dL (7-18); BUN/Creat Ratio 22.2 RATIO (10-20); Calcium,Total 8.8 mg/dL (8.5-10.1); Chloride 111 mmol/L (98-107); Creatinine, Serum 0.54 mg/dL (0.55-1.02); EST Glomerular Filtration Rate 118 mL/min (>60); Est Glom Filt Rate - Afr Amer 143 mL/min (>60); Estimated Creatinine Clearance 65.99 ml/min; Glucose 127 mg/dL (74-106); Potassium 3.3 mmol/L (3.5-5.1); Sodium Level 141 mmol/L (136-145)
[2024-08-09 06:54] LABS: Bedside Glucose 123 mg/dL (74-106)
[2024-08-09 08:15] VITALS: O2SAT 94
[2024-08-09 10:00] VITALS: BP 158/74; PULSE 64; RESP 18; TEMP 36.8; O2SAT 95
[2024-08-09] MEDS: Losartan Potassium 25 MG Tablet PO (10:03)
[2024-08-09] MEDS: Potassium Chloride Oral Tablet 20 MEQ 40 MEQ PO (10:03)
[2024-08-09] MEDS: Famotidine 20 MG Tablet 10 MG PO (10:03)
[2024-08-09] MEDS: Divalproex Sodium 125 MG SPRINKLE PO (10:04)
[2024-08-09] MEDS: Aspirin 81 MG TAB.CHEW PO (10:05)
[2024-08-09] MEDS: Potassium Chloride Oral Tablet 20 MEQ PO (10:05)
[2024-08-09] MEDS: Lactobacillis Acidophilus 1 CAP PO ×2 (10:05→14:33)
[2024-08-09] MEDS: busPIRone 5 MG Tablet PO (10:05)
[2024-08-09] MEDS: Vibegron 75 MG TABLET PO (10:05)
[2024-08-09 10:06] VITALS: BP 158/74; PULSE 64
[2024-08-09] MEDS: Metoprolol(XL)Succ 100 MG Tablet PO (10:06)
[2024-08-09] MEDS: Enoxaparin 40 MG/0.4 ML Syringe SC (10:06)
[2024-08-09] MEDS: Nystatin Powder 15gm Bottle 1 APPLIC TOPICAL (10:07)
[2024-08-09 12:10] LABS: Bedside Glucose 137 mg/dL (74-106)
--- NOTE | 2024-08-09 14:40 | PCM.TXEXTCAR ---
Diet Diet Order/Speech Therapy: 08/08/24 00:01 Diet: Consistent Carb - Calorie Controlled Food consistency:: Soft & Bite Sized Liquid Consistency:: Regular/Thin Dietary Modifications:: Cardiac / Heart Healthy Diet Comments: Direct sup/Feeding assistance, Liquids by straw, Oral care after meals How many daily calories?: 1800 calorie Routine Orders/Code Status Code Status: DNRCC-A Therapies Narrative: Up to chair with assistance Problem/Diagnosis (1) Acute cystitis without hematuria: Status: Acute Code(s): N30.00 - Acute cystitis without hematuria Comment: E.coli (2) Dehydration: Status: Acute Code(s): E86.0 - Dehydration (3) Metabolic encephalopathy: Status: Acute Code(s): G93.41 - Metabolic encephalopathy (4) Chronic dementia: Status: Chronic Code(s): F03.90 - Unspecified dementia, unspecified severity, without behavioral disturbance, psychotic disturbance, mood disturbance, and anxiety (5) Depression with anxiety: Status: Acute Code(s): F41.8 - Other specified anxiety disorders (6) History of CVA (cerebrovascular accident): Status: Acute Code(s): Z86.73 - Personal history of transient ischemic attack (TIA), and cerebral infarction without residual deficits Allergies/Procedures Done in Hospital Allergies FELICITY Inhibitors Allergy (Unknown, Verified 03/24/24 21:51) PT UNABLE TO RESPOND-NEEDS F/U eggplant Allergy (Unknown, Verified 03/24/24 21:51) PT UNABLE TO RESPOND-NEEDS F/U Penicillins Allergy (Unknown, Verified 03/24/24 21:51) PT UNABLE TO RESPOND-NEEDS F/U Procedures: None Type of Care/Length of Stay Estimated LOS: More Than 30 Days Type of Care Needed: Intermediate Rehab Potential: Fair Prognosis: Fair Additional Orders/Day of Discharge H&P will serve as current which was dated: 08/07/24 Day of Discharge: 08/09/24 Dietary and Speech Recommendations Dietitian Recommendations/Changes: Adjust continue cardiac, 1800 calorie controlled diet, per IT SECURITY MANAGER recommended consistency/texture. Will order ONS, if appetite decreases. Will monitor weight, as available. Reviewed and approved by Hansa Liz RD, LD. Discharge Plan Admission Admit Date/Time: 08/07/24 22:56 Primary Reason for Your Visit: cystitis Attending Provider: John Plascencia Primary Care Provider: Olinda Resendez Consulting Providers: Jac Donahue; Nick Ingram Discharge Orders/Prescriptions Prescriptions: New metformin 1,000 mg tablet 1,000 mg PO QHS Qty: 1 0RF anastrozole [Arimidex] 1 mg tablet 1 mg PO DAILY Qty: 1 0RF amlodipine 5 mg tablet 5 mg PO DAILY Qty: 1 0RF clonazepam [Klonopin] 0.5 mg tablet 0.5 mg PO TID PRN (Reason: anxiety) Qty: 3 0RF acetaminophen 500 mg tablet 1,000 mg PO Q8H PRN PRN (Reason: pain) Qty: 1 0RF cephalexin 500 mg capsule 500 mg PO TID Qty: 12 0RF Rx Instructions: start on 08/10/24 Continued aspirin 81 mg capsule 81 mg PO DAILY atorvastatin 40 mg tablet 40 mg PO DAILY buspirone 5 mg tablet 5 mg PO BID donepezil 5 mg tablet 10 mg PO QHS divalproex 125 mg capsule, delayed rel sprinkle 125 mg PO BID famotidine 40 mg tablet 40 mg PO DAILY glipizide 5 mg tablet 7.5 mg PO DAILY metoprolol succinate 100 mg tablet extended release 24 hr 100 mg PO DAILY potassium chloride 20 mEq tablet,ER particles/crystals 20 meq PO DAILY metformin 1,000 mg tablet 1,000 mg PO DAILY losartan 25 mg tablet 25 mg PO DAILY nystatin 100,000 unit/gram powder 1 applic topical BID mirtazapine 7.5 mg tablet 7.5 mg PO QHS mirabegron 25 mg tablet extended release 24 hr 25 mg PO DAILY Discontinued clonazepam 0.5 mg tablet 0.5 mg PO Q8H PRN PRN (Reason: anxiety) metformin 850 mg tablet 850 mg PO DAILY Referrals / Follow Up: Olinda Resendez MD [Primary Care Provider] - Disposition Disposition (needs filled in before D/C Order can be placed): NonSkilled NH/Intermed Care
[2024-08-09 14:42] VITALS: BP 177/83; PULSE 65
[2024-08-09] MEDS: hydrALAZINE 20 MG/ML Vial 10 MG IV (14:42)
--- NOTE | 2024-08-09 15:33 | DS.PCM_ITS ---
Providers Date of Admission: 08/07/24 Date of Discharge: 08/09/24 Primary Care Physician: Dr. Olinda Resendez MD Reason For Visit: UTI, DEHYDRATION & METABOLIC ENCEPHALOPATHY Diagnosis Discharge Diagnosis (1) Acute cystitis without hematuria: Status: Acute Code(s): N30.00 - Acute cystitis without hematuria (2) Dehydration: Status: Acute Code(s): E86.0 - Dehydration (3) Metabolic encephalopathy: Status: Acute Code(s): G93.41 - Metabolic encephalopathy (4) Chronic dementia: Status: Chronic Code(s): F03.90 - Unspecified dementia, unspecified severity, without behavioral disturbance, psychotic disturbance, mood disturbance, and anxiety (5) Depression with anxiety: Status: Acute Code(s): F41.8 - Other specified anxiety disorders (6) History of CVA (cerebrovascular accident): Status: Acute Code(s): Z86.73 - Personal history of transient ischemic attack (TIA), and cerebral infarction without residual deficits Plan 1. Acute cystitis #2 metabolic encephalopathy on a backdrop of chronic dementia #3 cerebrovascular disease #4 dehydration #5 type 2 diabetes Medications at Discharge Home Medications aspirin 81 mg capsule 81 mg PO DAILY 08/07/24 atorvastatin 40 mg tablet 40 mg PO DAILY 08/07/24 buspirone 5 mg tablet 5 mg PO BID 08/07/24 divalproex 125 mg capsule,delayed release sprinkle 125 mg PO BID 08/07/24 donepezil 5 mg tablet 10 mg PO QHS 08/07/24 famotidine 40 mg tablet 40 mg PO DAILY 08/07/24 glipizide 5 mg tablet 7.5 mg PO DAILY 08/07/24 losartan 25 mg tablet 25 mg PO DAILY 08/07/24 metformin 1,000 mg tablet 1,000 mg PO DAILY 08/07/24 metoprolol succinate 100 mg tablet,extended release 24 hr 100 mg PO DAILY 08/07/24 mirabegron 25 mg tablet,extended release 24 hr 25 mg PO DAILY 08/07/24 mirtazapine 7.5 mg tablet 7.5 mg PO QHS 08/07/24 nystatin 100,000 unit/gram topical powder 1 applic topical BID 08/07/24 potassium chloride 20 mEq tablet,extended release(part/cryst) 20 meq PO DAILY 08/07/24 acetaminophen 500 mg tablet 1,000 mg (2 x 500 mg) PO Q8H PRN PRN pain #1 TAB 08/09/24 amlodipine 5 mg tablet 5 mg PO DAILY #1 TAB 08/09/24 anastrozole 1 mg tablet (Arimidex) 1 mg PO DAILY #1 TAB 08/09/24 cephalexin 500 mg capsule 500 mg PO TID #12 caps 08/09/24 clonazepam 0.5 mg tablet (Klonopin) 0.5 mg PO TID PRN anxiety #3 tabs 08/09/24 metformin 1,000 mg tablet 1,000 mg PO QHS #1 TAB 08/09/24 Hospital Course Operations None Procedures None Summary of Care Provided Minutes Spent on Discharge: 32 Hospital Course: This 69-year-old white female was seen in the emergency room at [facility] after being transported in from an intermediate care nursing facility due to strokelike symptoms, a prehospital stroke team was called, assessment of the patient was difficult due to the fact that she was aphasic and not following commands. Patient had a prior stroke in the past and had a history of dementia and apparently this was her baseline. Patient was taken to CT where initial head CT showed no acute findings and CTA did not demonstrate any large vessel occlusion. She was assessed by teleneurology and felt not to be a tPA candidate, EKG was performed which showed a normal sinus rhythm, sodium was 146, BUN was 39 and creatinine was 1.17. Urinalysis demonstrated 10-25 white cells and +2 bacteria with positive nitrates and positive leukocyte esterase. Valproic acid level was 14 and talk screen was positive for benzodiazepines. Patient received IV ceftriaxone and IV fluids, after thorough assessment it was felt that she did not have a stroke. Patient ultimately started to say some words to nursing staff and move her extremities. Patient was admitted to PCU and IV antibiotics were administered, she was seen by speech therapy, urine culture ultimately grew out E. coli which was sensitive to wide spectrum of antibiotics. On 08/09/2024, patient was seen and examined: On examination she does not appear to be in any distress, patient is aphasic and does not follow commands readily. Vital signs as documented. Skin warm and dry and without overt rashes. Neck without JVD, thyroid appears normal, trachea is midline, neck is supple. Lungs clear, normal air movement was noted. Heart exam notable for regular rhythm, normal sounds and absence of murmurs, rubs or gallops. Abdomen unremarkable and without evidence of organomegaly, masses, or abdominal aortic enlargement, bowel sounds are present in all 4 quadrants, no abdominal tenderness was noted. Extremities nonedematous, no cyanosis was noted, no clubbing was noted. Neuro: Cranial nerves II through XII are grossly intact, no focal motor deficits were noted, sensation to light touch and pinprick is intact, motor exam 5/5 throughout. Psych: Patient is alert, she is aphasic Patient was transferred back to her intermediate nursing care facility on 08/09/2024 in stable condition Weight / BMI Weight Weight: 74.2 kg Body Mass Index (BMI) 27.2 ABG / Lab / Microbiology Data 08/09/24 05:50 08/09/24 05:50 Laboratory: Laboratory Results - last 24 hr 08/08/24 16:57: POC Glucose 161 H 08/08/24 22:34: POC Glucose 124 H 08/09/24 05:50: WBC 5.8, RBC 3.75 L, Hgb 10.7 L, Hct 33.6 L, MCV 89.6, MCH 28.5, MCHC 31.8 L D, RDW Std Deviation 45.8 H, RDW Coeff of Jose 14.0, Plt Count 270, MPV 9.1, Immature Gran % (Auto) 0.300, Neut % (Auto) 65.0, Lymph % (Auto) 22.5, O'Brien % (Auto) 6.9, Eos % (Auto) 4.6, Baso % (Auto) 0.7, Absolute Neuts (auto) 3.8, Absolute Lymphs (auto) 1.31, Nucleated RBC % 0, Sodium 141, Potassium 3.3 L , Chloride 111 H, Carbon Dioxide 25.0, Anion Gap 6, BUN 12, Creatinine 0.54 L, Estim Creat Clear Calc 65.99, Est GFR (MDRD) Af Amer 143, Est GFR (MDRD) Non-Af 118, BUN/Creatinine Ratio 22.2 H, Glucose 127 H, Calcium 8.8 08/09/24 06:35: POC Glucose 123 H 08/09/24 11:37: POC Glucose 137 H Microbiology: Microbiology 08/07/24 21:30 Urine, Clean Catch Urine Culture - Final Escherichia coli Meaningful Use Info Meaningful Use Meaningful Use Diagnoses (Choose all that apply): None applicable Ischemic Stroke Statin Dosing Therapy Reference: STATIN DOSE THERAPY REFERENCE: * Patients > 75 years receive moderate or high dose statin therapy. * Patients 75 years or YOUNGER should receive HIGH intensity statin dose unless contraindicated. You will be required to document reason for non-treatment if statin daily dose does not meet guidelines. HIGH DOSE STATIN THERAPY DAILY Atorvastatin > than or = to 40 mg Rosuvastatin > than or = to 20 mg Amlodipine + Atorvastatin > than or = to 2.5/40 mg Ezetimibe + Simvastatin 10/80 mg Simvastatin 80mg Discharge Plan Admission Admit Date/Time: 08/07/24 22:56 Primary Reason for Your Visit: cystitis Attending Provider: John Plascencia Primary Care Provider: Olinda Resendez Consulting Providers: Jac Donahue; Nick Ingram Discharge Orders/Prescriptions Prescriptions: New metformin 1,000 mg tablet 1,000 mg PO QHS Qty: 1 0RF anastrozole [Arimidex] 1 mg tablet 1 mg PO DAILY Qty: 1 0RF amlodipine 5 mg tablet 5 mg PO DAILY Qty: 1 0RF clonazepam [Klonopin] 0.5 mg tablet 0.5 mg PO TID PRN (Reason: anxiety) Qty: 3 0RF acetaminophen 500 mg tablet 1,000 mg PO Q8H PRN PRN (Reason: pain) Qty: 1 0RF cephalexin 500 mg capsule 500 mg PO TID Qty: 12 0RF Rx Instructions: start on 08/10/24 Continued aspirin 81 mg capsule 81 mg PO DAILY atorvastatin 40 mg tablet 40 mg PO DAILY buspirone 5 mg tablet 5 mg PO BID donepezil 5 mg tablet 10 mg PO QHS divalproex 125 mg capsule, delayed rel sprinkle 125 mg PO BID famotidine 40 mg tablet 40 mg PO DAILY glipizide 5 mg tablet 7.5 mg PO DAILY metoprolol succinate 100 mg tablet extended release 24 hr 100 mg PO DAILY potassium chloride 20 mEq tablet,ER particles/crystals 20 meq PO DAILY metformin 1,000 mg tablet 1,000 mg PO DAILY losartan 25 mg tablet 25 mg PO DAILY nystatin 100,000 unit/gram powder 1 applic topical BID mirtazapine 7.5 mg tablet 7.5 mg PO QHS mirabegron 25 mg tablet extended release 24 hr 25 mg PO DAILY Discontinued clonazepam 0.5 mg tablet 0.5 mg PO Q8H PRN PRN (Reason: anxiety) metformin 850 mg tablet 850 mg PO DAILY Referrals / Follow Up: Olinda Resendez MD [Primary Care Provider] - Disposition Disposition (needs filled in before D/C Order can be placed): NonSkilled NH/Intermed Care Charges/Coding Visit Charges Inpatient E&M: 42253 Disch Hosp >30min
[2024-08-09 15:50] VITALS: BP 146/73; PULSE 66; RESP 18; TEMP 36.3; O2SAT 97
--- NOTE | 2024-08-09 16:14 | NURSING ---
Report called to [facility] for pt to return to the same bed she was in before.
[2024-08-09] MEDS: Cefdinir 300 MG Capsule 600 MG PO (16:36)
[2024-08-09] MEDS: amLODIPine 5 MG Tablet PO (16:36)
== END 2024-08-09 17:13 | disposition intermediate care facility (04) | DRG 689 ==
LOC: ED 22:15 → PCU 23:19
PROVIDERS: Family Medicine; Admitting Provider Internal Medicine; Emergency Provider Emergency Medicine; PCP Internal Medicine; Visit Provider Internal Medicine
DX: N30.01 Acute cystitis with hematuria (principal); G93.41 Metabolic encephalopathy; I69.351 Hemiplegia and hemiparesis following cerebral infarction affecting right dominant side; E11.9 Type 2 diabetes mellitus without complications; E78.00 Pure hypercholesterolemia, unspecified; B96.20 Unspecified Escherichia coli [E. coli] as the cause of diseases classified elsewhere; F03.C0 Unspecified dementia, severe, without behavioral disturbance, psychotic disturbance, mood disturbance, and anxiety; I10 Essential (primary) hypertension; F32.A Depression, unspecified; E86.0 Dehydration; I25.10 Atherosclerotic heart disease of native coronary artery without angina pectoris; F41.9 Anxiety disorder, unspecified; I25.2 Old myocardial infarction; K21.9 Gastro-esophageal reflux disease without esophagitis; Z79.82 Long term (current) use of aspirin; Z79.84 Long term (current) use of oral hypoglycemic drugs; Z79.899 Other long term (current) drug therapy; Z85.3 Personal history of malignant neoplasm of breast; Z86.69 Personal history of other diseases of the nervous system and sense organs
CPT/HCPCS: 36415; 70450; 70496; 70498; 71045; 80048; 80053; 80164; 80307; 81001; 82962; 83036; 83735; 84100; 84443; 84484; 85025; 85610; 85730; 87040; 87077; 87086; 87088; 87186; 92526; 92610; 93005; 99285; J7030; Q9967; A4216

== ENCOUNTER → 2024-08-25 05:00 | Outpatient (REF) | payer MEDICARE, MEDICAID, SELFPAY ==
[2024-08-25 08:27] LABS: Absolute Lymphocyte Count 1.59 X10^3/uL (0.83-4.51); Absolute Neutrophil Count 4.2 X10^3/uL (2.0-7.7); Basophil# 0.05 X10^3/uL; Basophil% 0.8 % (0-1); Eosinophil# 0.19 X10^3/uL; Eosinophils% 2.9 % (0-5); Hematocrit 37.3 % (37-47); Hemoglobin 11.4 g/dL (12.0-15.0); Lymphocyte # 1.59 X10^3/ul (0.83-4.51); Lymphocyte % 24.4 % (19-41); Mean Corp Hgb Conc 30.6 g/dL (32-36); Mean Corpuscular Hgb 28.4 pg (27.0-32.0); Mean Corpuscular Volume 92.8 fL (81-99); Mean Platelet Vol. 9.7 fl (6.2-12.0); Monocyte# 0.46 X10^3/uL; Monocyte% 7.1 % (0-10); NRBC Flagged by Analyzer 0 % (0-5); Neutrophil # 4.19 X10^3/uL (2.7-7.7); Neutrophil % 64.2 % (47-70); Platelet Count 348 K/mm3 (150-450); RBC Distribution Width CV 14.6 % (11.6-14.6); RBC Distribution Width SD 49.6 fl (35.1-43.9); Red Blood Count 4.02 M/mm3 (4.2-5.4); White Blood Count 6.5 K/mm3 (4.4-11.0)
[2024-08-25 08:38] LABS: Anion Gap 11 (5-15); BUN 43 mg/dL (7-18); BUN/Creat Ratio 38.1 RATIO (10-20); Calcium,Total 10.1 mg/dL (8.5-10.1); Chloride 112 mmol/L (98-107); Creatinine, Serum 1.13 mg/dL (0.55-1.02); EST Glomerular Filtration Rate 51 mL/min (>60); Est Glom Filt Rate - Afr Amer 61 mL/min (>60); Glucose 95 mg/dL (74-106); Potassium 4.3 mmol/L (3.5-5.1); Sodium Level 146 mmol/L (136-145)
== END ==
LOC: OLS.SW 05:00
PROVIDERS: PCP Internal Medicine; Visit Provider Internal Medicine
DX: E11.22 Type 2 diabetes mellitus with diabetic chronic kidney disease (principal); N18.31 Chronic kidney disease, stage 3a
CPT/HCPCS: 36415; 80048; 85025

== ENCOUNTER → 2024-09-02 05:00 | Outpatient (REF) | payer MEDICARE, MEDICAID, SELFPAY ==
[2024-09-02 08:34] LABS: Anion Gap 10 (5-15); BUN 25 mg/dL (7-18); BUN/Creat Ratio 28.2 RATIO (10-20); Calcium,Total 9.8 mg/dL (8.5-10.1); Chloride 117 mmol/L (98-107); Creatinine, Serum 0.89 mg/dL (0.55-1.02); EST Glomerular Filtration Rate 67 mL/min (>60); Est Glom Filt Rate - Afr Amer 81 mL/min (>60); Glucose 113 mg/dL (74-106); Potassium 3.5 mmol/L (3.5-5.1); Sodium Level 148 mmol/L (136-145)
== END ==
LOC: OLS.SW 05:00
PROVIDERS: PCP Internal Medicine; Visit Provider Internal Medicine
DX: E87.0 Hyperosmolality and hypernatremia (principal)
CPT/HCPCS: 36415; 80048

== ENCOUNTER → 2024-09-09 | Outpatient (REF) | payer MEDICARE, MEDICAID, SELFPAY ==
[2024-09-09 08:28] LABS: Absolute Lymphocyte Count 2.22 X10^3/uL (0.83-4.51); Basophil# 0.06 X10^3/uL; Basophil% 0.7 % (0-1); Eosinophil# 0.04 X10^3/uL; Eosinophils% 0.4 % (0-5); Hematocrit 41.6 % (37-47); Hemoglobin 12.7 g/dL (12.0-15.0); Lymphocyte # 2.22 X10^3/ul (0.83-4.51); Lymphocyte % 24.7 % (19-41); Mean Corp Hgb Conc 30.5 g/dL (32-36); Mean Corpuscular Hgb 28.2 pg (27.0-32.0); Mean Corpuscular Volume 92.4 fL (81-99); Mean Platelet Vol. 10.1 fl (6.2-12.0); Monocyte# 0.58 X10^3/uL; Monocyte% 6.5 % (0-10); NRBC Flagged by Analyzer 0 % (0-5); Neutrophil # 6.03 X10^3/uL (2.7-7.7); Neutrophil % 67.3 % (47-70); Platelet Count 367 K/mm3 (150-450); RBC Distribution Width CV 14.9 % (11.6-14.6); RBC Distribution Width SD 50.4 fl (35.1-43.9)
[2024-09-09 08:51] LABS: Anion Gap 7 (5-15); BUN 59 mg/dL (7-18); BUN/Creat Ratio 51.8 RATIO (10-20); Calcium,Total 10.1 mg/dL (8.5-10.1); Chloride 126 mmol/L (98-107); Creatinine, Serum 1.14 mg/dL (0.55-1.02); EST Glomerular Filtration Rate 50 mL/min (>60); Est Glom Filt Rate - Afr Amer 61 mL/min (>60); Glucose 92 mg/dL (74-106); Sodium Level 157 mmol/L (136-145)
== END ==
LOC: OLS.SW 05:00
PROVIDERS: PCP Internal Medicine; Visit Provider Internal Medicine
DX: Z79.899 Other long term (current) drug therapy (principal)
CPT/HCPCS: 36415; 80048; 85025

== ENCOUNTER → 2024-09-11 | Outpatient (REF) | payer MEDICARE, MEDICAID, SELFPAY ==
[2024-09-11 08:42] LABS: Anion Gap 5 (5-15); BUN 45 mg/dL (7-18); BUN/Creat Ratio 41.7 RATIO (10-20); Calcium,Total 9.5 mg/dL (8.5-10.1); Chloride 131 mmol/L (98-107); Creatinine, Serum 1.08 mg/dL (0.55-1.02); EST Glomerular Filtration Rate 53 mL/min (>60); Est Glom Filt Rate - Afr Amer 65 mL/min (>60); Glucose 153 mg/dL (74-106); Potassium 4.1 mmol/L (3.5-5.1); Sodium Level 157 mmol/L (136-145)
== END ==
LOC: OLS.SW 07:10
PROVIDERS: PCP Internal Medicine; Visit Provider Internal Medicine
DX: I12.9 Hypertensive chronic kidney disease with stage 1 through stage 4 chronic kidney disease, or unspecified chronic kidney disease (principal); N18.9 Chronic kidney disease, unspecified
CPT/HCPCS: 36415; 80048